=== PATIENT | female | born 1945 | race Caucasian/White ===

== ENCOUNTER 2020-11-01 12:19 | Outpatient (REF) | payer MEDICARE, SELFPAY ==
[2020-11-01 13:16] LABS: Glucose Urine UA NEG (NEG); Leukocyte Esterase Urine NEG (NEG); Nitrite Urine NEG (NEG); PH 7.5 (5.0-8.0); Urine Blood NEG (NEG); Urine Ketones NEG (NEG); Urine Protein NEG (NEG-TRACE)
[2020-11-01 13:18] LABS: Appearance Urine CLEAR; Color Urine YELLOW
[2020-11-01 13:22] LABS: MANUAL DIFF FLAG NO
[2020-11-01 13:34] LABS: Basophils Percent Auto 0.3 % (0-2); Eosinophils Absolute Auto 0.6 X10*3/uL (0.0-0.4); Eosinophils Percent Auto 5.4 % (0-4); Hematocrit 40.7 % (37-47); Hemoglobin 12.8 g/dl (12.0-16.0); Imm Gran Abs Auto 0.13 X10*3/uL (0.00-0.03); Imm Gran Pct Auto 1.2 % (0.0-0.4); Lymphocytes Absolute Auto 1.9 X10*3/uL (1.2-4.9); Lymphocytes Percent Auto 18.1 % (20-40); Mean Corpuscular HGB Conc 31.4 g/dl (31.0-35.0); Mean Corpuscular Hemoglobin 33.6 pg (27.0-33.0); Mean Corpuscular Volume 106.8 fL (80-98); Mean Platelet Volume 11.6 fL (9.4-12.3); Monocytes Absolute Auto 0.9 X10*3/uL (0.1-1.2); Monocytes Percent Auto 8.1 % (2-11); Neutrophils Percent Auto 66.9 % (45-73); Platelet Count 343 X10*3/uL (160-400); Red Blood Count 3.81 X10*6/uL (4.20-5.50); Red Cell Distribution Width 13.2 % (11.0-16.0); White Blood Count 10.4 X10*3/uL (4.8-10.8)
[2020-11-01 13:45] LABS: Alanine Aminotransferase 17 U/L (0-31); Albumin Level 4.3 g/dL (3.5-5.0); Alkaline Phosphatase 77 U/L (39-117); Anion Gap 14 (12-20); Aspartate Amino Transferase 18 U/L (5-31); Bilirubin Total 0.4 mg/dL (0.0-1.0); Blood Urea Nitrogen 35 mg/dL (9-16); Calcium 10.3 mg/dL (8.4-10.2); Carbon Dioxide 28 mmol/L (22-29); Chloride 108 mmol/L (96-108); Cholesterol 187 mg/dL; Estimated Glomerular Filt Rate 31; Glucose Fasting 109 mg/dL (60-99); HDL Cholesterol 35 mg/dL; LDL Cholesterol Calculated 103 mg/dl; Potassium 5.6 mmol/L (3.3-5.1); Sodium 144 mmol/L (135-145); Total Protein 6.6 g/dL (6.5-8.0); Triglycerides 249 mg/dL
[2020-11-01 13:47] LABS: B Type Natriuretic Peptide 341 pg/mL (<100)
[2020-11-01 14:07] LABS: TSH reflex Free T4 1.81 uIU/mL (0.32-4.0); Vitamin D 25-OH Total 82.3 ng/mL (>30)
== END 2020-11-01 12:20 | disposition home or self-care (01) ==
LOC: HO.LAB 12:19
PROVIDERS: PCP Internal Medicine; Visit Provider Internal Medicine
DX: R06.00 Dyspnea, unspecified (principal); I10 Essential (primary) hypertension; E78.00 Pure hypercholesterolemia, unspecified; E66.01 Morbid (severe) obesity due to excess calories; Z68.41 Body mass index [BMI] 40.0-44.9, adult; E55.9 Vitamin D deficiency, unspecified
CPT/HCPCS: 36415; 80053; 80061; 81003; 82306; 83880; 84443; 85025

== ENCOUNTER 2020-12-23 15:23 | Outpatient (REF) | payer MEDICARE, SELFPAY ==
--- NOTE | ~2020-12-23 | MM_ITS ---
EXAMINATION: MM SCREENING DIGITAL BREAST TOMOSYNTHESIS, BILATERAL CLINICAL INFORMATION: Screening. Asymptomatic. The lifetime risk of breast cancer based on the Tyrer-Cuzick Model is 1.9%. COMPARISON: Mammography: June 21, 2018 and studies dating back to September 19, 2013 TECHNIQUE: Digital breast tomosynthesis is performed in both the craniocaudal and mediolateral oblique views along with computer-aided detection (CAD). Synthesized 2D images are generated from the tomosynthesis. FINDINGS: There are scattered areas of fibroglandular density (ACR BI-RADS breast composition Category b). There are no significant masses, abnormal calcifications, or other abnormalities. There is noted to be a density about the central aspect of the left breast on craniocaudal view but which is seen on 2 different images to change in appearance to correspond to previously seen density in a more anterior breast. MM/MM tomosynthesis screening BI IMPRESSION: There are no significant changes from prior study. ASSESSMENT: BI-RADS 1: Negative RECOMMENDATION: Routine annual mammography screening. This patient's information was entered into a reminder system with a target due date for their next mammogram.
== END 2020-12-23 15:24 | disposition home or self-care (01) ==
LOC: HO.MAMMO 15:23
PROVIDERS: PCP Internal Medicine; Visit Provider Internal Medicine
DX: Z12.31 Encounter for screening mammogram for malignant neoplasm of breast (principal)
CPT/HCPCS: 77063; 77067

== ENCOUNTER 2021-07-03 11:40 | Outpatient (REF) | payer MEDICARE, SELFPAY ==
[2021-07-03 12:11] LABS: MANUAL DIFF FLAG NO
[2021-07-03 12:16] LABS: Basophils Percent Auto 0.3 % (0-2); Eosinophils Absolute Auto 0.4 X10*3/uL (0.0-0.4); Eosinophils Percent Auto 3.8 % (0-4); Hematocrit 37.6 % (37.0-47.0); Hemoglobin 11.9 g/dl (12.0-16.0); Imm Gran Abs Auto 0.31 X10*3/uL (0.00-0.03); Imm Gran Pct Auto 3.3 % (0.0-0.4); Lymphocytes Absolute Auto 1.9 X10*3/uL (1.2-4.9); Lymphocytes Percent Auto 20.2 % (20-40); Mean Corpuscular HGB Conc 31.6 g/dl (31.0-35.0); Mean Corpuscular Hemoglobin 34.5 pg (27.0-33.0); Mean Platelet Volume 10.4 fL (9.4-12.3); Monocytes Absolute Auto 0.9 X10*3/uL (0.1-1.2); Monocytes Percent Auto 9.1 % (2-11); Neutrophils Percent Auto 63.3 % (45-73); Platelet Count 441 X10*3/uL (160-400); Red Blood Count 3.45 X10*6/uL (4.20-5.50); Red Cell Distribution Width 13.8 % (11.0-16.0); White Blood Count 9.5 X10*3/uL (4.8-10.8)
[2021-07-03 12:32] LABS: Estimated Average Glucose 105 mg/dL; Hemoglobin A1c % 5.3 %
[2021-07-03 12:38] LABS: Alanine Aminotransferase 24 U/L (0-31); Albumin Level 4.3 g/dL (3.5-5.0); Alkaline Phosphatase 75 U/L (39-117); Anion Gap 13 (12-20); Aspartate Amino Transferase 19 U/L (5-31); Bilirubin Total 0.2 mg/dL (0.0-1.0); Blood Urea Nitrogen 33 mg/dL (9-16); Calcium 10.5 mg/dL (8.4-10.2); Carbon Dioxide 28 mmol/L (22-29); Chloride 108 mmol/L (96-108); Cholesterol 184 mg/dL; Estimated Glomerular Filt Rate 28; Glucose Fasting 111 mg/dL (60-99); HDL Cholesterol 31 mg/dL; LDL Cholesterol Calculated 105 mg/dl; Potassium 5.3 mmol/L (3.3-5.1); Sodium 144 mmol/L (135-145); Total Protein 6.6 g/dL (6.5-8.0); Triglycerides 244 mg/dL
[2021-07-03 13:00] LABS: Appearance Urine CLEAR; Color Urine YELLOW; Glucose Urine UA NEG (NEG); Leukocyte Esterase Urine NEG (NEG); Nitrite Urine NEG (NEG); PH 5.5 (5.0-8.0); Specific Gravity - Urine 1.025 (1.005-1.025); Urine Blood NEG (NEG); Urine Ketones NEG (NEG); Urine Protein NEG (NEG-TRACE)
[2021-07-03 13:00] LABS: TSH reflex Free T4 1.49 uIU/mL (0.32-4.0)
== END 2021-07-03 11:41 | disposition home or self-care (01) ==
LOC: HO.LAB 11:40
PROVIDERS: PCP Internal Medicine; Visit Provider Internal Medicine
DX: E55.9 Vitamin D deficiency, unspecified (principal); E78.00 Pure hypercholesterolemia, unspecified; R73.01 Impaired fasting glucose; I10 Essential (primary) hypertension
CPT/HCPCS: 36415; 80053; 80061; 81003; 82306; 83036; 84443; 85025

== ENCOUNTER 2021-10-31 11:34 | Outpatient (REF) | payer MEDICARE, SELFPAY ==
[2021-10-31 11:54] LABS: MANUAL DIFF FLAG NO
[2021-10-31 12:11] LABS: Basophils Percent Auto 0.3 % (0-2); Eosinophils Absolute Auto 0.7 X10*3/uL (0.0-0.4); Eosinophils Percent Auto 5.6 % (0-4); Hematocrit 30.3 % (37.0-47.0); Hemoglobin 8.8 g/dl (12.0-16.0); Imm Gran Abs Auto 0.18 X10*3/uL (0.00-0.03); Imm Gran Pct Auto 1.5 % (0.0-0.4); Lymphocytes Absolute Auto 1.7 X10*3/uL (1.2-4.9); Lymphocytes Percent Auto 14.7 % (20-40); Mean Corpuscular Hemoglobin 27.3 pg (27.0-33.0); Mean Corpuscular Volume 94.1 fL (80.0-98.0); Mean Platelet Volume 10.4 fL (9.4-12.3); Monocytes Absolute Auto 1.1 X10*3/uL (0.1-1.2); Monocytes Percent Auto 9.2 % (2-11); Neutrophils Absolute Auto 8.1 x10*3/uL (2.0-8.3); Neutrophils Percent Auto 68.7 % (45-73); Platelet Count 507 X10*3/uL (160-400); Red Blood Count 3.22 X10*6/uL (4.20-5.50); Red Cell Distribution Width 16.1 % (11.0-16.0); White Blood Count 11.8 X10*3/uL (4.8-10.8)
[2021-10-31 12:37] LABS: Appearance Urine HAZY; Color Urine YELLOW; Glucose Urine UA NEG (NEG); Leukocyte Esterase Urine NEG (NEG); Nitrite Urine NEG (NEG); PH 5.5 (5.0-8.0); Urine Blood NEG (NEG); Urine Ketones NEG (NEG); Urine Protein NEG (NEG-TRACE)
[2021-10-31 12:39] LABS: Alanine Aminotransferase 14 U/L (0-31); Albumin Level 4.2 g/dL (3.5-5.0); Alkaline Phosphatase 87 U/L (39-117); Anion Gap 15 (12-20); Aspartate Amino Transferase 15 U/L (5-31); Bilirubin Total 0.3 mg/dL (0.0-1.0); Blood Urea Nitrogen 26 mg/dL (9-16); Carbon Dioxide 23 mmol/L (22-29); Chloride 107 mmol/L (96-108); Cholesterol 179 mg/dL; Estimated Glomerular Filt Rate 31; Glucose Fasting 113 mg/dL (60-99); HDL Cholesterol 32 mg/dL; LDL Cholesterol Calculated 99 mg/dl; Sodium 140 mmol/L (135-145); Total Protein 6.5 g/dL (6.5-8.0); Triglycerides 243 mg/dL
[2021-10-31 12:55] LABS: TSH reflex Free T4 2.31 uIU/mL (0.32-4.0); Vitamin D 25-OH Total 79.2 ng/mL (>30)
== END 2021-10-31 11:35 | disposition home or self-care (01) ==
LOC: HO.LAB 11:34
PROVIDERS: PCP Internal Medicine; Visit Provider Internal Medicine
DX: E78.00 Pure hypercholesterolemia, unspecified (principal); E55.9 Vitamin D deficiency, unspecified; I10 Essential (primary) hypertension
CPT/HCPCS: 36415; 80053; 80061; 81003; 82306; 84443; 85025

== ENCOUNTER 2022-01-23 15:36 | Inpatient (IN) | payer MEDICARE, SELFPAY ==
[2022-01-23] VITALS (12 sets, daily range): BP systolic 128–176; BP diastolic 34–67; PULSE 64–78; RESP 11–18; TEMP 36.7–37; O2SAT 93–98; BMI 43.2
--- NOTE | ~2022-01-23 | XR_ITS ---
EXAMINATION: XR CHEST CLINICAL INFORMATION: Chronic cough COMPARISON: CT abdomen 01/23/2022, chest radiographs 04/01/2018, 03/08/2018; CTA chest 09/25/2014 TECHNIQUE: The chest is imaged in upright AP and 2 lateral views for a total of 3 views. FINDINGS: There is no airspace consolidation, groundglass opacity, or effusion. The costophrenic sulci are clear. The heart is normal in size. The vascularity is normal. There is a small round calcification overlying right lower zone corresponding to calcified costal cartilage adjacent to anterior right fifth rib and consistent with prior CT 2015. The hilar and mediastinal contours are normal. No acute bony abnormality. There is again old superior endplate depression lower thoracic vertebral body, also present on CT 2015. XR/XR chest 2V IMPRESSION: Unremarkable examination.
--- NOTE | ~2022-01-23 | CT_ITS ---
EXAMINATION: CT ABDOMEN AND PELVIS WITHOUT CONTRAST CLINICAL INFORMATION: GI bleed and lower abdominal pain COMPARISON: Ultrasound abdomen 12/02/2018 TECHNIQUE: Multidetector volumetric imaging was performed from the superior aspect of the liver through the pubic symphysis. Sagittal and coronal reformatted images were obtained on the technologist's workstation. This CT examination was performed using dose optimization techniques as appropriate, variously including the following: *Automated exposure control *Adjustment of mA and/or kV according to patient size (this includes techniques or standardized protocols for targeted exams where dose is matched to indication/reason for exam; i.e. extremities or head) *Use of iterative reconstruction technique DLP: 1118 mGy-cm FINDINGS: LUNG BASES: The visualized lung bases are unremarkable. LIVER, GALLBLADDER, AND BILIARY TREE: The liver is normal in size, shape, and attenuation. No focal hepatic lesion or biliary ductal dilatation is present. The gallbladder is unremarkable with no evidence of radiopaque gallstones, gallbladder wall thickening, or obvious pericholecystic inflammatory changes. PANCREAS: Unremarkable. SPLEEN: Unremarkable. Splenic granulomas are present. ADRENAL GLANDS: Unremarkable. KIDNEYS AND URETERS: There is some scarring and cortical volume loss in the left kidney compared to the study from 2018. On 02/17/2019 ultrasound, the left kidney was noted to measure only 8.2 cm in greatest length A left tight renal artery stenosis is present which could be playing a role with marked ostial calcification and luminal narrowing to approximately 2 to 4 mm (compared with 6 x 5 mm on the right). This is the maximal diameter as 2 diameter may be less if there is noncalcified plaque which cannot be ascertained from this noncontrast study. There is a small 6 mm Bosniak class II hyperattenuating cyst upper pole left kidney seen previously. No suspicious renal masses are seen. No hydronephrosis or masses. BLADDER: Unremarkable. GASTROINTESTINAL TRACT: This study without IV contrast is inadequate to diagnose an active GI bleed. Marked diverticular changes are present in the sigmoid colon with scattered diverticula elsewhere no evidence of bowel obstruction. No evidence of colonic neoplasm. The small and large bowel are otherwise unremarkable. The appendix is none identified but there is no evidence of appendicitis.. ABDOMINAL WALL: No significant hernia is appreciated. LYMPH NODES: No retroperitoneal lymphadenopathy adenopathy VASCULAR: Atherosclerotic changes. Please see discussion above regarding left renal artery stenosis and left renal atrophy PELVIC VISCERA: Unremarkable. OSSEOUS STRUCTURES: Degenerative changes present in the spine. There is grade 2 anterolisthesis of L5 upon S1 with fusion. There is compression of the superior endplate of T12. CT/CT abdomen pelvis wo con IMPRESSION: 1. No evidence of GI bleeding although this study has virtually no utility for detection. 2. No large bowel neoplasm is seen which could be causing bleeding. This study also has a low detection rate for such abnormalities. 3. There is extensive sigmoid diverticulosis without diverticulitis. 4. Cortical scarring and volume loss in the left kidney with associated left renal artery stenosis. Fleischner guidelines were followed.
[2022-01-23 16:54] LABS: MANUAL DIFF FLAG NO
[2022-01-23 16:57] LABS: Basophils Percent Auto 0.1 % (0-2); Eosinophils Absolute Auto 0.2 X10*3/uL (0.0-0.4); Eosinophils Percent Auto 1.2 % (0-4); Imm Gran Abs Auto 0.18 X10*3/uL (0.00-0.03); Imm Gran Pct Auto 1.2 % (0.0-0.4); Lymphocytes Absolute Auto 1.6 X10*3/uL (1.2-4.9); Lymphocytes Percent Auto 11.1 % (20-40); Mean Corpuscular HGB Conc 27.8 g/dl (31.0-35.0); Mean Corpuscular Hemoglobin 25.8 pg (27.0-33.0); Mean Corpuscular Volume 92.8 fL (80.0-98.0); Mean Platelet Volume 9.6 fL (9.4-12.3); Monocytes Absolute Auto 1.2 X10*3/uL (0.1-1.2); Monocytes Percent Auto 8.3 % (2-11); NRBC Pct Auto 0.1 /100WBC (0.0-0.2); Neutrophils Absolute Auto 11.5 x10*3/uL (2.0-8.3); Neutrophils Percent Auto 78.1 % (45-73); Platelet Count 528 X10*3/uL (160-400); Red Blood Count 1.94 X10*6/uL (4.20-5.50); Red Cell Distribution Width 18.1 % (11.0-16.0); White Blood Count 14.8 X10*3/uL (4.8-10.8)
[2022-01-23 17:25] LABS: Anion Gap 14 (12-20); Blood Urea Nitrogen 47 mg/dL (9-16); Calcium 10.3 mg/dL (8.4-10.2); Carbon Dioxide 24 mmol/L (22-29); Chloride 108 mmol/L (96-108); Creatinine Clr Calc Pharmacy 36.4; Estimated Glomerular Filt Rate 29; Glucose Random 118 mg/dL (60-115); Potassium 5.3 mmol/L (3.3-5.1); Sodium 141 mmol/L (135-145)
--- NOTE | 2022-01-23 17:35 | ECG_ITS ---
Test Reason : GI BLEED Blood Pressure : / mmHG Vent. Rate : 072 BPM Atrial Rate : 072 BPM P-R Int : 196 ms QRS Dur : 084 ms QT Int : 382 ms P-R-T Axes : 051 044 052 degrees QTc Int : 418 ms Normal sinus rhythm Normal ECG When compared with ECG of 01-APR-2018 17:11, T wave inversion no longer evident in Anterior leads Referred By: Connor Plascencia Electronically Signed By:LAVINIA OROPEZA
--- NOTE | 2022-01-23 17:36 | ED_ITS ---
HPI - GI Bleed General Chief complaint: GI Bleed Stated complaint: Heavy Rectal Bleeding Time Seen by Provider: 01/23/22 17:34 Source: patient Mode of arrival: ambulatory Limitations: no limitations History of Present Illness HPI Narrative: Patient with a few months of black stool, now with reddish stool and low ab dominal pain. INcreased weakness and she cannot ambulate. Patient is on apixaban for PE and DVT Onset (ago): week(s) Pain Consistency: intermittent Severity: mild Context: anticoagulant use Associated symptoms: malaise and weakness Related Data Previous Rx's Medication Instructions Recorded lisinopril 40 mg tablet 40 mg PO DAILY #90 tabs 06/26/21 atorvastatin 40 mg tablet 40 mg PO DAILY #90 tabs 07/03/21 ondansetron HCl 4 mg tablet 4 mg PO Q8H PRN for 09/04/21 nausea/vomiting 10 days #30 tabs apixaban 5 mg tablet (Eliquis) 5 mg PO BID #180 tabs 09/26/21 hydrochlorothiazide 50 mg tablet 50 mg PO DAILY #90 tabs 09/26/21 ibuprofen 600 mg tablet 600 mg PO TID PRN for fever #90 01/04/22 tabs Allergies Allergy/AdvReac Type Severity Reaction Status Date / Time levofloxacin [From LEVAQUIN] Allergy Severe angioedema Verified 01/23/22 16:12 metronidazole [From FLAGYL] Allergy Severe angioedema Verified 01/23/22 16:12 codeine [CODEINE] Allergy Intermediate RASH, hives Verified 01/23/22 16:12 codeine Allergy Unknown hives Uncoded 10/31/21 14:02 Review of Systems Constitutional: Constitutional: Reports no additional constitutional complaints Eyes: Eyes: Reports no additional eye complaints ENT: Denies dizziness Cardiovascular: Cardiovascular: Reports no additional cardiovascular complaints Respiratory: Respiratory: Reports as per HPI Gastrointestinal: Gastrointestinal: Reports no additional gastrointestinal complaints Genitourinary: Genitourinary: Reports no additional female genitourinary complaints Musculoskeletal: Musculoskeletal: Reports no additional musculoskeletal complaints Integumentary/Breasts: Skin/Breast: Denies rash Neurologic: Reports system reviewed and no additional complaints, except as documented, Denies dizziness and Denies Sensory deficit (Neuro) Psychiatric: Psychiatric: Denies anxiety PMFSH Past Medical History Medical History Anemia Benign essential hypertension Breast cancer screening Chronic idiopathic urticaria Chronic kidney disease (CKD), stage III (moderate) Exertional dyspnea History of pulmonary embolism Impaired fasting glucose Morbid obesity with BMI of 40.0-44.9, adult Osteopenia Pure hypercholesterolemia Skin lesions Surgical History History of appendectomy History of back surgery Family History Family History Father Liver cirrhosis Mother Substance abuse Social History Social History Housing: House Alcohol intake: never Patient Tobacco Use Status: Former Tobacco user Second Hand Smoke Exposure: Yes Use of substances other than those prescribed or required for medical reasons: No Advance Directives: No Advance Directives Information Provided: No service: No Current occupational status: retired Cognitive needs: No Hearing needs: No Vision needs: Yes (wears glasses) Physical Exam Vital Signs: Vital Signs: Last Vital Signs Temp 98.6 F 01/23/22 19:32 Pulse 68 01/23/22 19:36 Resp 16 01/23/22 19:36 BP 128/67 01/23/22 19:36 Pulse Ox 98 01/23/22 19:32 O2 Del Method 01/23/22 19:32 BMI result Body Mass Index 43.2 Const: Other: obese female appearing pale Nutritional Appearance: average body habitus Orientation/consciousness: oriented to person and patient oriented x3 Limitations: no limitations HEENT: Head: Yes normal to inspection Ears: external ears normal General nose exam: Normal external nose present Mouth: Normal oral and palatal mucosa present and oropharynx normal Throat: Yes posterior oropharynx normal Eyes: General: appearance normal, both eyes and all related structures Neck: Other: supple Neck: Yes normal visual inspection Chest: Chest palpation & inspection: normal inspection of the chest Resp: Auscultation: clear to auscultation bilaterally Cardio: Jugular venous distension: no JVD Rate: regular rate Rhythm: regular rhythm Heart sounds: S1 normal heart sound present and S2 normal heart sound present GI: Other: obese, mild lower abdominal pain Auscultation: normal bowel sounds : Other: rectal black stool with strong heme positive on guiac card Skin: General skin exam: no rashes or lesions noted Neuro: General: oriented to person and patient oriented x3 Cranial nerves: Yes CN's II-XII intact bilaterally Motor exam (neuro): 5/5 motor strength present throughout Sensory Exam: No Sensory deficit (Neuro) Extrem: General: Yes normal to inspection Psych: Appearance: grossly normal MDM - GI Bleed Lab Data Result diagrams: 01/23/22 16:47 01/23/22 16:47 Labs: Lab Results 01/23/22 01/23/22 01/23/22 Range/Units 16:47 16:47 17:43 WBC 14.8 H (4.8-10.8) X10*3/uL RBC 1.94 L D (4.20-5.50) X10*6/uL Hgb 5.0 L* D (12.0-16.0) g/dl Hct 18.0 L* D (37.0-47.0) % MCV 92.8 (80.0-98.0) fL MCH 25.8 L (27.0-33.0) pg MCHC 27.8 L (31.0-35.0) g/dl RDW 18.1 H (11.0-16.0) % Plt Count 528 H (160-400) X10*3/uL MPV 9.6 (9.4-12.3) fL Immature Gran % (Auto) 1.2 H (0.0-0.4) % Neut % (Auto) 78.1 H (45-73) % Lymph % (Auto) 11.1 L (20-40) % [place] % (Auto) 8.3 (2-11) % Eos % (Auto) 1.2 (0-4) % Baso % (Auto) 0.1 (0-2) % Lymph # (Auto) 1.6 (1.2-4.9) X10*3/uL [place] # (Auto) 1.2 (0.1-1.2) X10*3/uL Eos # (Auto) 0.2 (0.0-0.4) X10*3/uL Baso # (Auto) 0.0 (0.0-0.2) X10*3/uL Abs Immat Gran (auto) 0.18 H (0.00-0.03) X10*3/uL Absolute Neuts (auto) 11.5 H (2.0-8.3) x10*3/uL Absolute Nucleated RBC 0.020 H (0.0-0.012) X10*3/uL Nucleated RBC % (auto) 0.1 (0.0-0.2) /100WBC Sodium 141 (135-145) mmol/L Potassium 5.3 H (3.3-5.1) mmol/L Chloride 108 (96-108) mmol/L Carbon Dioxide 24 (22-29) mmol/L Anion Gap 14 (12-20) BUN 47 H D (9-16) mg/dL Creatinine 1.69 H (0.5-1.4) mg/dL Estim Creat Clear Calc 36.4 Estimated GFR 29 Random Glucose 118 H (60-115) mg/dL Calcium 10.3 H (8.4-10.2) mg/dL Troponin I High Sens (<3.5-17.0) ng/L COVID-19 (SERGIO) (Negative) COVID-19 Clin Com Blood Type A Positive Antibody Screen NEGATIVE Crossmatch See Detail 01/23/22 01/23/22 Range/Units 17:55 18:59 WBC (4.8-10.8) X10*3/uL RBC (4.20-5.50) X10*6/uL Hgb (12.0-16.0) g/dl Hct (37.0-47.0) % MCV (80.0-98.0) fL MCH (27.0-33.0) pg MCHC (31.0-35.0) g/dl RDW (11.0-16.0) % Plt Count (160-400) X10*3/uL MPV (9.4-12.3) fL Immature Gran % (Auto) (0.0-0.4) % Neut % (Auto) (45-73) % Lymph % (Auto) (20-40) % [place] % (Auto) (2-11) % Eos % (Auto) (0-4) % Baso % (Auto) (0-2) % Lymph # (Auto) (1.2-4.9) X10*3/uL [place] # (Auto) (0.1-1.2) X10*3/uL Eos # (Auto) (0.0-0.4) X10*3/uL Baso # (Auto) (0.0-0.2) X10*3/uL Abs Immat Gran (auto) (0.00-0.03) X10*3/uL Absolute Neuts (auto) (2.0-8.3) x10*3/uL Absolute Nucleated RBC (0.0-0.012) X10*3/uL Nucleated RBC % (auto) (0.0-0.2) /100WBC Sodium (135-145) mmol/L Potassium (3.3-5.1) mmol/L Chloride (96-108) mmol/L Carbon Dioxide (22-29) mmol/L Anion Gap (12-20) BUN (9-16) mg/dL Creatinine (0.5-1.4) mg/dL Estim Creat Clear Calc Estimated GFR Random Glucose (60-115) mg/dL Calcium (8.4-10.2) mg/dL Troponin I High Sens 7.9 (<3.5-17.0) ng/L COVID-19 (SERGIO) Negative (Negative) COVID-19 Clin Com See Note Blood Type Antibody Screen Crossmatch Imaging Data CT scan - abdomen: Radiologist's impression: CT/CT abdomen pelvis wo con IMPRESSION: 1.? No evidence of GI bleeding although this study has virtually no utility for detection. 2.? No large bowel neoplasm is seen which could be causing bleeding. This study also has a low detection rate for such abnormalities. 3.? There is extensive sigmoid diverticulosis without diverticulitis. 4.? Cortical scarring and volume loss in the left kidney with associated left renal artery stenosis.? ? Fleischner guidelines were followed. ECG Data Attestation: I personally reviewed and interpreted this ECG as follows: Interpretation: sinus 70, no st or twave changes Critical Care Time Critical Care Time Attestation: I spent 40 minutes of critical care, with interventions, assessments, speaking to patient, consultants, and family. Discharge Plan Discharge Clinical Impression: GI bleed Patient Disposition: Admitted As Inpatient
[2022-01-23] MEDS: Pantoprazole Sodium 40 MG/10 ML VIAL IVPUSH (18:05)
[2022-01-23 18:29] LABS: Troponin-I High Sensitivity 7.9 ng/L (<3.5-17.0)
--- NOTE | 2022-01-23 19:18 | PHA.MEDREC ---
Pharmacy Consult ? Medication Reconciliation Pharmacy has completed the medication reconciliation.
[2022-01-23 19:19] LABS: COVID-19 Test Negative (Negative)
--- NOTE | 2022-01-23 19:23 | PC.NURSE ---
report received from Amaris GARDNER. pt to be given blood transusion. blood reveiced from blood bank, pt in CT scan. blood started upon patient return to ED room. tolerating transfusion well. NAD. continuous monitoring in place.
[2022-01-23] MEDS: Acetaminophen 325 MG TABLET 650 MG PO (23:12)
[2022-01-24] VITALS (8 sets, daily range): BP systolic 104–178; BP diastolic 50–76; PULSE 67–79; RESP 14–18; TEMP 36.2–37; O2SAT 94–100
--- NOTE | 2022-01-24 00:04 | PC.NURSE ---
2 units RBCs infused. pt tolerated well. no current complaints, no respiratory distress. vitals stable. will continue to monitor closely.
[2022-01-24 04:52] LABS: MANUAL DIFF FLAG NO
[2022-01-24 04:57] LABS: Basophils Percent Auto 0.2 % (0-2); Eosinophils Absolute Auto 0.3 X10*3/uL (0.0-0.4); Eosinophils Percent Auto 2.5 % (0-4); Hemoglobin 8.3 g/dl (12.0-16.0); Imm Gran Abs Auto 0.14 X10*3/uL (0.00-0.03); Imm Gran Pct Auto 1.1 % (0.0-0.4); Lymphocytes Absolute Auto 2.4 X10*3/uL (1.2-4.9); Lymphocytes Percent Auto 18.5 % (20-40); Mean Corpuscular HGB Conc 30.7 g/dl (31.0-35.0); Mean Corpuscular Hemoglobin 27.7 pg (27.0-33.0); Mean Platelet Volume 10.3 fL (9.4-12.3); Monocytes Absolute Auto 1.2 X10*3/uL (0.1-1.2); Monocytes Percent Auto 8.9 % (2-11); Neutrophils Absolute Auto 9.1 x10*3/uL (2.0-8.3); Neutrophils Percent Auto 68.8 % (45-73); Platelet Count 467 X10*3/uL (160-400); Red Cell Distribution Width 17.5 % (11.0-16.0); White Blood Count 13.2 X10*3/uL (4.8-10.8)
[2022-01-24 05:12] LABS: Anion Gap 14 (12-20); Blood Urea Nitrogen 40 mg/dL (9-16); Calcium 9.7 mg/dL (8.4-10.2); Carbon Dioxide 23 mmol/L (22-29); Chloride 110 mmol/L (96-108); Estimated Glomerular Filt Rate 34; Glucose Random 98 mg/dL (60-115); Potassium 4.9 mmol/L (3.3-5.1); Sodium 142 mmol/L (135-145)
--- NOTE | 2022-01-24 06:16 | PM.IMHP ---
History of Present Illness Date of Service: 01/23/22 Chief Complaint: GI bleed This is a 76-year-old female with past medical history of HTN, CKD, history of DVT/pulmonary embolism on apixaban presents to the hospital with multiple episodes of bloody bowel movements. Patient reports that her bowel movements initially began to turn tarry black yesterday followed by multiple episodes of bright blood blood per rectum. She reports diffuse abdominal pain that is about 8/10, intermittent, nonradiating, reports no headache or change in vision, slight dizziness and shortness of breath on exertion, no chest pain, no palpitations, no urinary symptoms and no lower extremity edema. She feels overall very fatigued and low energy, she has also lost appetite for the past 2 days. No numbness tingling or weakness. Patient denies any use of NSAIDs but on review of her medications she does have ibuprofen prescribed On arrival to the ED patient's vitals were found to be significant for slightly elevated blood pressure otherwise unremarkable Labs are significant for WBC count of 14.8, hemoglobin of 5 hematocrit of 18, previously 8.8 and 30 in October, MCV of 92.8, potassium 5.3, BUN of 47 with a baseline around 30s, creatinine of 1.69 which is around her baseline, Patient abdominal CT negative but shows diverticulosis with no diverticulitis Review of Systems Review of Systems: Yes all other systems are reviewed and are negative [facility] Medical History Anemia Benign essential hypertension Breast cancer screening Chronic idiopathic urticaria Chronic kidney disease (CKD), stage III (moderate) Exertional dyspnea History of pulmonary embolism Impaired fasting glucose Morbid obesity with BMI of 40.0-44.9, adult Osteopenia Pure hypercholesterolemia Skin lesions Family History Father Liver cirrhosis Mother Substance abuse Surgical History History of appendectomy History of back surgery Social History Housing: House Alcohol intake: never Patient Tobacco Use Status: Former Tobacco user Second Hand Smoke Exposure: Yes Use of substances other than those prescribed or required for medical reasons: No Advance Directives: No Advance Directives Information Provided: No service: No Current occupational status: retired Cognitive needs: No Hearing needs: No Vision needs: Yes (wears glasses) Meds Allergies Allergy/AdvReac Type Severity Reaction Status Date / Time levofloxacin [From LEVAQUIN] Allergy Severe angioedema Verified 01/23/22 16:12 metronidazole [From FLAGYL] Allergy Severe angioedema Verified 01/23/22 16:12 codeine [CODEINE] Allergy Intermediate RASH, hives Verified 01/23/22 16:12 codeine Allergy Unknown hives Uncoded 10/31/21 14:02 Active Medications: Current Medications Acetaminophen (Acetaminophen 325 Mg Tablet) 650 mg PO Q6H PRN PRN Reason: Pain, Mild (Pain Scale 1-3) Last Admin: 01/23/22 23:12 Dose: 650 mg Docusate Sodium (Docusate Sodium 100 Mg Capsule) 100 mg PO DAILY PRN PRN Reason: Constipation Ondansetron HCl (Ondansetron Hcl 4 Mg/2 Ml Vial) 4 mg IVPUSH Q8H PRN PRN Reason: Nausea and Vomiting Pharmacy Consult (Consult Rx Perform Med Rec) 1 each MISCELLANE ONCE PRN PRN Reason: Consult order Sodium Chloride (0.9 % Sodium Chloride Flush 3 Ml Syringe) 3 ml IVFLUSH QSHIFT [facility] Last Admin: 01/24/22 01:01 Dose: Not Given Physical Exam Vital Signs and Narrative: Vital Signs: Last Vital Signs Temp 98.0 F 01/24/22 05:24 Pulse 78 01/24/22 05:24 Resp 16 01/24/22 05:24 BP 158/76 H 01/24/22 05:24 Pulse Ox 94 01/24/22 05:24 O2 Del Method 01/24/22 05:24 BMI result Body Mass Index 43.2 Const: General: cooperative and no acute distress Orientation/consciousness: patient oriented x3 Eyes: General: appearance normal, both eyes and all related structures Resp: Effort & Inspection: normal respiratory effort Auscultation: clear to auscultation bilaterally Cardio: Rate: regular rate Rhythm: regular rhythm GI: Other: No rebound or guarding Palpation (GI): Soft to palpation Auscultation: normal bowel sounds Skin: General skin exam: no rashes or lesions noted Neuro: General: patient oriented x3 Cognition (Neuro): normal cognition Extrem: General: Yes normal to inspection and Yes no pedal edema Results Labs CBC and Chem 7: 01/24/22 04:12 01/24/22 04:12 Labs: Laboratory Results - last 24 hr 01/23/22 01/23/22 01/23/22 16:47 16:47 17:43 MCV 92.8 MCH 25.8 L MCHC 27.8 L RDW 18.1 H Plt Count 528 H MPV 9.6 Immature Gran % (Auto) 1.2 H Neut % (Auto) 78.1 H Lymph % (Auto) 11.1 L [place] % (Auto) 8.3 Eos % (Auto) 1.2 Baso % (Auto) 0.1 Lymph # (Auto) 1.6 [place] # (Auto) 1.2 Eos # (Auto) 0.2 Baso # (Auto) 0.0 Abs Immat Gran (auto) 0.18 H Absolute Neuts (auto) 11.5 H Absolute Nucleated RBC 0.020 H Nucleated RBC % (auto) 0.1 Anion Gap 14 Estim Creat Clear Calc 36.4 Estimated GFR 29 Random Glucose 118 H Calcium 10.3 H COVID-19 (SERGIO) COVID-19 Clin Com Blood Type A Positive Antibody Screen NEGATIVE Crossmatch See Detail 01/23/22 01/24/22 01/24/22 18:59 04:12 04:12 MCV 90.0 MCH 27.7 MCHC 30.7 L RDW 17.5 H Plt Count 467 H MPV 10.3 Immature Gran % (Auto) 1.1 H Neut % (Auto) 68.8 Lymph % (Auto) 18.5 L [place] % (Auto) 8.9 Eos % (Auto) 2.5 Baso % (Auto) 0.2 Lymph # (Auto) 2.4 [place] # (Auto) 1.2 Eos # (Auto) 0.3 Baso # (Auto) 0.0 Abs Immat Gran (auto) 0.14 H Absolute Neuts (auto) 9.1 H Absolute Nucleated RBC 0.000 Nucleated RBC % (auto) 0.0 Anion Gap 14 Estim Creat Clear Calc 41.0 Estimated GFR 34 Random Glucose 98 Calcium 9.7 COVID-19 (SERGIO) Negative COVID-19 Clin Com See Note Blood Type Antibody Screen Crossmatch Imaging Radiologist's Impressions: Impressions Abdomen/Pelvis CT 01/23/22 19:19 IMPRESSION: 1. No evidence of GI bleeding although this study has virtually no utility for detection. 2. No large bowel neoplasm is seen which could be causing bleeding. This study also has a low detection rate for such abnormalities. 3. There is extensive sigmoid diverticulosis without diverticulitis. 4. Cortical scarring and volume loss in the left kidney with associated left renal artery stenosis. Fleischner guidelines were followed. Assessment and Plan (1) GI bleed: Status: Acute (2) Acute on chronic anemia: Status: Acute Plan 76-year-old female with a history of PE/DVT on apixaban presents to the hospital with GI bleed # GI bleed - upper versus lower unclear - has elevated BUN but has baseline CKD - no history of NSAIDs, is on apixaban for history of DVT - hold apixaban - status post 2 units of PRBC - will transfuse to a hemoglobin of 7 - follow CBC - GI consulted - clear liquids # acute on chronic anemia - normocytic - likely secondary to GI bleed - status post unit of PRBC received in the ED - follow CBC - hold NSAIDs # DVT/PE - hold apixaban # hypertension - slightly elevated - continue home medications DVT prophylaxis: SCDs Quality Stroke Does the patient have a stroke diagnosis?: No VTE Prior VTE?: No VTE Risk Level:: Medical - moderate - high VTE Device Contraindication: N/A - Device Ordered VTE Drug Contraindication: Treatment Not Indicated
--- NOTE | 2022-01-24 06:17 | P.CNGI_ITS ---
History of Present Illness Data of Consult Service Date: 01/24/22 Requesting physician: Ashanti Edmond Primary Care Provider: Remigio Hooks MD HPI Reason for consult: anemia 76 yr old f with hx of PTE and obesity being seen for assessment of anemia Patient has had blackish stools for few months, now noted to be more reddish in color, also noted altered bowle habits last few months with hard stools. she has noted lower abdominal cramps, with nausea. No fevers, no chills, but has SOB and chronic dry cough for 6 months. She denies dysphagia and reflux. No nose bleeds, no hematuria. she takes nsaids infrequently for joint pains, been on apixiban since PT2018. Maybe had a colonoscopy 40 yrs ago which was incomplete but not sure. she uses stick for walking but is self caring. Review of Systems Constitutional: Constitutional: Reports no additional constitutional com plaints Eyes: Eyes: Reports no additional eye complaints ENT: Denies dizziness Cardiovascular: Cardiovascular: Reports no additional cardiovascular complaints Respiratory: Respiratory: Reports as per HPI Gastrointestinal: Gastrointestinal: Reports no additional gastrointestinal complaints Genitourinary: Genitourinary: Reports no additional female genitourinary complaints Musculoskeletal: Musculoskeletal: Reports no additional musculoskeletal complaints Integumentary/Breasts: Skin/Breast: Denies rash Neurologic: Reports system reviewed and no additional complaints, except as documented, Denies dizziness and Denies Sensory deficit (Neuro) Psychiatric: Psychiatric: Denies anxiety Endocrine: Endocrine: Reports no additional endocrine complaints Hematologic/Lymphatic: Hematologic/Lymphatic: Reports no additional hematologic/lymphatic complaints and Denies easy bleeding Allergic/Immunologic: Allergic/Immunologic: Reports no additional all ergic/immunologic complaints PMFSH Past Medical History Medical History Anemia Benign essential hypertension Breast cancer screening Chronic idiopathic urticaria Chronic kidney disease (CKD), stage III (moderate) Exertional dyspnea History of pulmonary embolism Impaired fasting glucose Morbid obesity with BMI of 40.0-44.9, adult Osteopenia Pure hypercholesterolemia Skin lesions Family History Family History Father Liver cirrhosis Mother Substance abuse Surgical History Surgical History History of appendectomy History of back surgery Social History Social History Housing: House Alcohol intake: never Patient Tobacco Use Status: Former Tobacco user Second Hand Smoke Exposure: Yes Use of substances other than those prescribed or required for medical reasons: No Advance Directives: Yes Advance Directives on File: Yes Advance Directives Date on File: 01/24/22 service: No Current occupational status: retired Cognitive needs: No Hearing needs: No Vision needs: Yes (wears glasses) Meds Allergies Allergy/AdvReac Type Severity Reaction Status Date / Time levofloxacin [From LEVAQUIN] Allergy Severe angioedema Verified 01/23/22 16:12 metronidazole [From FLAGYL] Allergy Severe angioedema Verified 01/23/22 16:12 codeine [CODEINE] Allergy Intermediate RASH, hives Verified 01/23/22 16:12 codeine Allergy Unknown hives Uncoded 10/31/21 14:02 Active Medications: Current Medications Acetaminophen (Acetaminophen 325 Mg Tablet) 650 mg PO Q6H PRN PRN Reason: Pain, Mild (Pain Scale 1-3) Last Admin: 01/23/22 23:12 Dose: 650 mg Docusate Sodium (Docusate Sodium 100 Mg Capsule) 100 mg PO DAILY PRN PRN Reason: Constipation Ondansetron HCl (Ondansetron Hcl 4 Mg/2 Ml Vial) 4 mg IVPUSH Q8H PRN PRN Reason: Nausea and Vomiting Pharmacy Consult (Consult Rx Perform Med Rec) 1 each MISCELLANE ONCE PRN PRN Reason: Consult order Sodium Chloride (0.9 % Sodium Chloride Flush 3 Ml Syringe) 3 ml IVFLUSH [facility] Last Admin: 01/24/22 01:01 Dose: Not Given Physical Exam Vital Signs: Vital Signs: Last Vital Signs Temp 98.0 F 01/24/22 05:24 Pulse 78 01/24/22 05:24 Resp 16 01/24/22 05:24 BP 158/76 H 01/24/22 05:24 Pulse Ox 94 01/24/22 05:24 O2 Del Method 01/24/22 05:24 BMI result Body Mass Index 43.2 Const: Other: obese female appearing pale General: cooperative Nutritional Appearance: overweight Orientation/consciousness: oriented to person and patient oriented x3 Limitations: no limitations HEENT: Head: Yes normal to inspection Ears: external ears normal General nose exam: Normal external nose present Mouth: Normal oral and palatal mucosa present and oropharynx normal Throat: Yes posterior oropharynx normal Eyes: General: appearance normal, both eyes and all related structures Neck: Other: supple Neck: Yes normal visual inspection Chest: Chest palpation & inspection: normal inspection of the chest Resp: Auscultation: clear to auscultation bilaterally Cardio: Jugular venous distension: no JVD Rate: regular rate Rhythm: regular rhythm Heart sounds: S1 normal heart sound present and S2 normal heart sound present GI: Other: obese, mild lower abdominal pain Inspection: Yes normal to inspection Auscultation: normal bowel sounds : Other: rectal black stool with strong heme positive on guiac card Skin: General skin exam: no rashes or lesions noted Neuro: General: oriented to person and patient oriented x3 Cranial nerves: Yes CN's II-XII intact bilaterally Motor exam (neuro): 5/5 motor strength present throughout Sensory Exam: No Sensory deficit (Neuro) Extrem: General: Yes normal to inspection Psych: Appearance: grossly normal Results Labs CBC & Chem 7: 01/24/22 04:12 01/24/22 04:12 Labs: Short CBC 01/23/22 01/24/22 Range/Units 16:47 04:12 WBC 14.8 H 13.2 H (4.8-10.8) X10*3/uL Hgb 5.0 L* D 8.3 L D (12.0-16.0) g/dl Hct 18.0 L* D 27.0 L D (37.0-47.0) % Plt Count 528 H 467 H (160-400) X10*3/uL [facility] 01/23/22 01/24/22 16:47 04:12 Sodium 141 142 Potassium 5.3 H 4.9 Chloride 108 110 H Carbon Dioxide 24 23 BUN 47 H D 40 H Creatinine 1.69 H 1.50 H Calcium 10.3 H 9.7 Assessment and Plan (1) Acute on chronic anemia: Status: Acute (2) GI bleed: Status: Acute Plan 1/ Acute to subacute anemia with possible melena and now more reddish stool, whilst on apixiban , received 2 units PRBC, hemodynamically stable ddX: neoplasia, advanced polyp, PUD, dieulafoy, gastritis PLAN: 1/ Clears today, trend HGB q 8 hr 2/ Can use PPI as doing 3/ EGD and colonoscopy tomorrow, Procedures Date of Service Date of Service: 01/24/22
[2022-01-24] MEDS: Pantoprazole Sodium 40 MG/10 ML VIAL IVPUSH ×2 (07:16→16:23)
--- NOTE | 2022-01-24 07:27 | PC.NURSE ---
assisted pt to the bedside commode, then back into bed comfortably, pt set up with her breakfast tray
[2022-01-24] MEDS: Acetaminophen 325 MG TABLET 650 MG PO ×2 (07:59→16:21)
--- NOTE | 2022-01-24 08:00 | PC.NURSE ---
Report received from Gina GARDNER. Patient reports no abdominal pain at this time, but has a severe headache each time she coughs, pain 10/10. Respirations regular and even. Skin PWD. + bowel sounds x 4. Patient up to commode with 1 assist. Sat and ate liquid diet breakfast independently. Medicated with PRN Tylenol and made hospitalist aware of headache. Will continue to monitor.
[2022-01-24] MEDS: Atorvastatin Calcium 40 MG TABLET PO (09:44)
[2022-01-24] MEDS: lisinopriL 40 MG TABLET PO (09:45)
--- NOTE | 2022-01-24 09:47 | MHC.CM.PN ---
Met with patient in regards to discharge planning. Patient lives with her son and his family, will occasionally use a walker for mobility and had no services prior to coming to the hospital. No services anticipated to be needed because patient is not home bound. PCP verified. HCP completed signed and witnessed. Original given to patient. Copy placed in chart. IMM explained and signed. Patient's family will transport her home when medically stable. Continue to monitor for d/c needs.
[2022-01-24] MEDS: hydroCHLOROthiazide 50 MG TABLET PO (10:00)
--- NOTE | 2022-01-24 11:00 | PC.NURSE ---
Patient continues to rest on stretcher, reports improved comfort with headache with Tylenol. Respirations regular and even. Skin PWD. Up to commode to urinate with one assist. Will continue to monitor.
--- NOTE | 2022-01-24 13:39 | P.PNIM_ITS ---
Subjective Subjective Date of Service: 01/24/22 Interval History: Seen and evaluated this morning Denies any overnight bloody bowel motions Hemoglobin improved after transfusion Review of Systems No fever, chills or weakness No chest pain, palpitation No shortness of breath or coughing No abdominal pain, nausea or vomiting No urinary symptoms No any rash or wounds Physical Exam Vital Signs: Vital Signs: Last Vital Signs Temp 98.1 F 01/24/22 07:16 Pulse 72 01/24/22 10:00 Resp 16 01/24/22 10:00 BP 162/52 H 01/24/22 10:00 Pulse Ox 97 01/24/22 10:00 O2 Del Method 01/24/22 10:00 BMI result Body Mass Index 43.2 Const: Other: Constitutional : Alert, oriented, not in distress Neck : Normal inspection, Supple Cardiovascular : RRR, no JVP, no lower extremity edema Respiratory : fair bilateral air entry, no crackles, wheezes or rhonchi Gastrointestinal: soft, lax, Normal bowel sounds, Non tender Skin : Warm, Dry Neurological : Alert & oriented x3, No focal deficit , CN 2-12 within normal Objective Data Active Medications Acetaminophen (Acetaminophen 325 Mg Tablet) 650 mg PO Q6H PRN PRN Reason: Pain, Mild (Pain Scale 1-3) Last Admin: 01/24/22 07:59 Dose: 650 mg Documented By: PAMELA Atorvastatin Calcium (Atorvastatin Calcium 40 Mg Tablet) 40 mg PO DAILY [facility] Last Admin: 01/24/22 09:44 Dose: 40 mg Documented By: PAMELA Docusate Sodium (Docusate Sodium 100 Mg Capsule) 100 mg PO DAILY PRN PRN Reason: Constipation Hydrochlorothiazide (Hydrochlorothiazide 50 Mg Tablet) 50 mg PO DAILY [facility]; Protocol Last Admin: 01/24/22 10:00 Dose: 50 mg Documented By: PAMELA Lisinopril (Lisinopril 40 Mg Tablet) 40 mg PO DAILY [facility]; Protocol Last Admin: 01/24/22 09:45 Dose: 40 mg Documented By: PAMELA Ondansetron HCl (Ondansetron Hcl 4 Mg/2 Ml Vial) 4 mg IVPUSH Q8H PRN PRN Reason: Nausea and Vomiting Pantoprazole Sodium (Pantoprazole Sodium 40 Mg/10 Ml Vial) 40 mg IVPUSH BID@0630,1630 [facility] Last Admin: 01/24/22 07:16 Dose: 40 mg Documented By: PAMELA Pharmacy Consult (Consult Rx Perform Med Rec) 1 each MISCELLANE ONCE PRN PRN Reason: Consult order Polyethylene Glycol/Electrolytes (Peg 3350/Na Sulf,Bicarb,Cl/Kcl 4,000 Ml Soln.Recon) 4,000 ml PO ONCE ONE Stop: 01/24/22 18:16 Sodium Chloride (0.9 % Sodium Chloride Flush 3 Ml Syringe) 3 ml IVFLUSH QSHIFT [facility] Last Admin: 01/24/22 08:00 Dose: Not Given Documented By: PAMELA Non-Admin Reason: Med Not Available Labs CBC & Chem 7: 01/24/22 04:12 01/24/22 04:12 Labs: Laboratory Results - last 24 hr 01/23/22 01/23/22 01/23/22 16:47 16:47 17:43 MCV 92.8 MCH 25.8 L MCHC 27.8 L RDW 18.1 H Plt Count 528 H MPV 9.6 Immature Gran % (Auto) 1.2 H Neut % (Auto) 78.1 H Lymph % (Auto) 11.1 L Dillon % (Auto) 8.3 Eos % (Auto) 1.2 Baso % (Auto) 0.1 Lymph # (Auto) 1.6 Dillon # (Auto) 1.2 Eos # (Auto) 0.2 Baso # (Auto) 0.0 Abs Immat Gran (auto) 0.18 H Absolute Neuts (auto) 11.5 H Absolute Nucleated RBC 0.020 H Nucleated RBC % (auto) 0.1 Smear Path Review SEE NOTE Anion Gap 14 Estim Creat Clear Calc 36.4 Estimated GFR 29 Random Glucose 118 H Calcium 10.3 H COVID-19 (SERGIO) COVID-19 Clin Com Blood Type A Positive Antibody Screen NEGATIVE Crossmatch See Detail 01/23/22 01/24/22 01/24/22 18:59 04:12 04:12 MCV 90.0 MCH 27.7 MCHC 30.7 L RDW 17.5 H Plt Count 467 H MPV 10.3 Immature Gran % (Auto) 1.1 H Neut % (Auto) 68.8 Lymph % (Auto) 18.5 L Dillon % (Auto) 8.9 Eos % (Auto) 2.5 Baso % (Auto) 0.2 Lymph # (Auto) 2.4 Dillon # (Auto) 1.2 Eos # (Auto) 0.3 Baso # (Auto) 0.0 Abs Immat Gran (auto) 0.14 H Absolute Neuts (auto) 9.1 H Absolute Nucleated RBC 0.000 Nucleated RBC % (auto) 0.0 Smear Path Review Anion Gap 14 Estim Creat Clear Calc 41.0 Estimated GFR 34 Random Glucose 98 Calcium 9.7 COVID-19 (SERGIO) Negative COVID-19 Clin Com See Note Blood Type Antibody Screen Crossmatch Assessment and Plan (1) Acute on chronic anemia: Status: Acute (2) GI bleed: Status: Acute Plan 76-year-old female with a history of PE/DVT on apixaban presents to the hospital with GI bleed # GI bleed upper versus lower unclear on apixaban for history of DVT hold apixaban post 2 units of PRBC transfuse to a hemoglobin of 7 follow CBC GI to do upper and lower endoscopy tomorrow clear liquids # acute on chronic anemia likely secondary to GI bleed status post unit of PRBC received in the ED follow CBC hold NSAIDs # DVT/PE hold apixaban # hypertension continue home medications DVT prophylaxis: SCDs The patient will need overnight hospital stay for evaluation of GI bleed to prevent possible decompensation to severe anemia. Quality Stroke Does the patient have a stroke diagnosis?: No VTE Prior VTE?: No VTE Risk Level:: Medical - moderate - high VTE Device Contraindication: N/A - Device Ordered VTE Drug Contraindication: Treatment Not Indicated
[2022-01-24 15:17] LABS: Hematocrit 28.3 % (37.0-47.0); Hemoglobin 8.7 g/dl (12.0-16.0); Mean Corpuscular HGB Conc 30.7 g/dl (31.0-35.0); Mean Corpuscular Hemoglobin 27.6 pg (27.0-33.0); Mean Corpuscular Volume 89.8 fL (80.0-98.0); Mean Platelet Volume 9.9 fL (9.4-12.3); NRBC Pct Auto 0.2 /100WBC (0.0-0.2); Platelet Count 455 X10*3/uL (160-400); Red Blood Count 3.15 X10*6/uL (4.20-5.50); Red Cell Distribution Width 18.3 % (11.0-16.0)
[2022-01-24] MEDS: 0.9 % Sodium Chloride Flush 3 ML SYRINGE IVFLUSH ×2 (16:23→19:32)
[2022-01-24] MEDS: PEG 3350/Na Sulf,Bicarb,Cl/KCL 4,000 ML SOLN.RECON 4000 ML PO (19:27)
[2022-01-25] VITALS (8 sets, daily range): BP systolic 118–162; BP diastolic 39–88; PULSE 78–97; RESP 14–18; TEMP 36.1–37.1; O2SAT 97–100
[2022-01-25] MEDS: Pantoprazole Sodium 40 MG/10 ML VIAL IVPUSH (06:14)
[2022-01-25 06:54] LABS: Hematocrit 26.6 % (37.0-47.0); Hemoglobin 8.1 g/dl (12.0-16.0); Mean Corpuscular HGB Conc 30.5 g/dl (31.0-35.0); Mean Corpuscular Hemoglobin 27.6 pg (27.0-33.0); Mean Corpuscular Volume 90.5 fL (80.0-98.0); Mean Platelet Volume 10.4 fL (9.4-12.3); Platelet Count 452 X10*3/uL (160-400); Red Blood Count 2.94 X10*6/uL (4.20-5.50); Red Cell Distribution Width 18.4 % (11.0-16.0); White Blood Count 16.5 X10*3/uL (4.8-10.8)
[2022-01-25 07:20] LABS: Anion Gap 15 (12-20); Blood Urea Nitrogen 28 mg/dL (9-16); Calcium 9.5 mg/dL (8.4-10.2); Carbon Dioxide 26 mmol/L (22-29); Chloride 108 mmol/L (96-108); Creatinine Clr Calc Pharmacy 42.7; Estimated Glomerular Filt Rate 35; Glucose Random 98 mg/dL (60-115); Potassium 4.9 mmol/L (3.3-5.1); Sodium 144 mmol/L (135-145)
[2022-01-25] MEDS: lisinopriL 40 MG TABLET PO (07:40)
[2022-01-25] MEDS: hydroCHLOROthiazide 50 MG TABLET PO (07:40)
[2022-01-25] MEDS: 0.9 % Sodium Chloride Flush 3 ML SYRINGE IVFLUSH (07:40)
--- NOTE | 2022-01-25 10:14 | HO.PM.IMPN ---
Subjective Subjective Date of Service: 01/25/22 Interval History: Seen and evaluated this morning Denies any overnight bloody bowel motions Prepared for upper and lower endoscopy this morning Review of Systems No fever, chills or weakness No chest pain, palpitation No shortness of breath or coughing No abdominal pain, nausea or vomiting No urinary symptoms No any rash or wounds Physical Exam Vital Signs: Vital Signs: Last Vital Signs Temp 98.3 F 01/25/22 07:28 Pulse 97 01/25/22 07:28 Resp 14 01/25/22 07:28 BP 147/64 H 01/25/22 07:28 Pulse Ox 97 01/25/22 07:28 O2 Del Method 01/25/22 07:28 BMI result Body Mass Index 43.2 Const: Other: Constitutional : Alert, oriented, not in distress Neck : Normal inspection, Supple Cardiovascular : RRR, no JVP, no lower extremity edema Respiratory : fair bilateral air entry, no crackles, wheezes or rhonchi Gastrointestinal: soft, lax, Normal bowel sounds, Non tender Skin : Warm, Dry Neurological : Alert & oriented x3, No focal deficit , CN 2-12 within normal Objective Data Active Medications Acetaminophen (Acetaminophen 325 Mg Tablet) 650 mg PO Q6H PRN PRN Reason: Pain, Mild (Pain Scale 1-3) Last Admin: 01/24/22 16:21 Dose: 650 mg Documented By: JODY Atorvastatin Calcium (Atorvastatin Calcium 40 Mg Tablet) 40 mg PO DAILY [facility] Last Admin: 01/25/22 07:41 Dose: Not Given Documented By: JODY Non-Admin Reason: NPO Docusate Sodium (Docusate Sodium 100 Mg Capsule) 100 mg PO DAILY PRN PRN Reason: Constipation Hydrochlorothiazide (Hydrochlorothiazide 50 Mg Tablet) 50 mg PO DAILY [facility]; Protocol Last Admin: 01/25/22 07:40 Dose: 50 mg Documented By: JODY Lisinopril (Lisinopril 40 Mg Tablet) 40 mg PO DAILY [facility]; Protocol Last Admin: 01/25/22 07:40 Dose: 40 mg Documented By: JODY Ondansetron HCl (Ondansetron Hcl 4 Mg/2 Ml Vial) 4 mg IVPUSH Q8H PRN PRN Reason: Nausea and Vomiting Pantoprazole Sodium (Pantoprazole Sodium 40 Mg/10 Ml Vial) 40 mg IVPUSH BID@9501,6663 [facility] Last Admin: 01/25/22 06:14 Dose: 40 mg Documented By: JERO Pharmacy Consult (Consult Rx Perform Med Rec) 1 each MISCELLANE ONCE PRN PRN Reason: Consult order Sodium Chloride (0.9 % Sodium Chloride Flush 3 Ml Syringe) 3 ml IVFLUSH QSHIFT [facility] Last Admin: 01/25/22 07:40 Dose: 3 ml Documented By: JODY Labs CBC & Chem 7: 01/25/22 06:09 01/25/22 06:09 Labs: Laboratory Results - last 24 hr 01/23/22 01/24/22 01/25/22 16:47 15:00 06:09 MCV 89.8 90.5 MCH 27.6 27.6 MCHC 30.7 L 30.5 L RDW 18.3 H 18.4 H Plt Count 455 H 452 H MPV 9.9 10.4 Absolute Nucleated RBC 0.020 H 0.000 Nucleated RBC % (auto) 0.2 0.0 Smear Path Review SEE NOTE Anion Gap Estim Creat Clear Calc Estimated GFR Random Glucose Calcium 01/25/22 06:09 MCV MCH MCHC RDW Plt Count MPV Absolute Nucleated RBC Nucleated RBC % (auto) Smear Path Review Anion Gap 15 Estim Creat Clear Calc 42.7 Estimated GFR 35 Random Glucose 98 Calcium 9.5 Assessment and Plan (1) Acute on chronic anemia: Status: Acute (2) GI bleed: Status: Acute Plan 76-year-old female with a history of PE/DVT on apixaban presents to the hospital with GI bleed # GI bleed upper versus lower unclear on apixaban for history of DVT hold apixaban Hemoglobin of 8.1 post 2 units of PRBC follow CBC GI to do upper and lower endoscopy today To advanced diet and restart Eliquis after the procedures to monitor for rebleeding # acute on chronic blood loss anemia secondary to GI bleed post unit of PRBC received in the ED follow CBC hold NSAIDs # DVT/PE hold apixaban # hypertension continue home medications DVT prophylaxis: SCDs The patient will need overnight hospital stay for evaluation of GI bleed to prevent possible decompensation to severe anemia. Quality Stroke Does the patient have a stroke diagnosis?: No VTE Prior VTE?: No VTE Risk Level:: Medical - moderate - high VTE Device Contraindication: N/A - Device Ordered VTE Drug Contraindication: Treatment Not Indicated
--- NOTE | 2022-01-25 16:22 | MHC.SHP ---
Pre-Procedural Eval Section A Date of Service: 01/25/22 The patient is an INPATIENT: Yes The History & Physical has been completed within 30 days and I have reviewed it.: Yes Section B Chief Complaint: GI bleed, anemia Allergies: Allergies Allergy/AdvReac Type Severity Reaction Status Date / Time levofloxacin [From LEVAQUIN] Allergy Severe angioedema Verified 01/23/22 16:12 metronidazole [From FLAGYL] Allergy Severe angioedema Verified 01/23/22 16:12 codeine [CODEINE] Allergy Intermediate RASH, hives Verified 01/23/22 16:12 codeine Allergy Unknown hives Uncoded 10/31/21 14:02 Plan Diagnosis/Plan: Unchanged I have reviewed the history and physical and performed a pertinent physical examination on my patient. No changes have occurred unless specified.
--- NOTE | 2022-01-25 16:23 | W.PM.OPN ---
Operative Note Operative Note Date of Service: 01/25/22 Narrative: Operative Information Procedure Description: EGD, Colonoscopy Indication: anemia. Gi bleeding Anesthesia: MAC FLEXIBLE TRANSORAL UPPER GASTROINTESTINAL ENDOSCOPY AND COLONOSCOPY PROCEDURE NOTE UPPER ENDOSCOPY Consent: Indications for the procedure and potential complications of bleeding, perforation, reaction to medications and missed diagnosis were discussed with the patient and informed consent was obtained. Instrument: Olympus GIF H 190 J mid size upper endoscope Monitoring: Vital signs and clinical assessment, continuous EKG monitoring, Pulse oximetry, Carbon Dioxide monitoring and blood pressure monitoring were done throughout the procedure. Procedure: The patient was placed in the left lateral decubitis position and pre-procedure medications were administered and a bite block was placed. The endoscope was inserted into the mouth and advanced under direct vision to the third part of duodenum. A careful inspection was made as the upper endoscope was withdrawn including a retroflexed examination of the proximal stomach; Findings and interventions are described below. Findings: Larynx:normal Esophagus: GE junction at 38 cm, diaphragm hiatus at 38 cm, mild esophagitis Stomach: x 2 Ryan grade III ulcers about 10-12 mm in the pre pyloric area with streaky erosive lesions in the antrum. In the lesser curve of stomach close to the proximal body there was a bleeding point which eith consistent bleeding. x 3 clips were applied for hemostasis and then hemospray. The mucosa was blanched in areas consistent with possible ischemia. Biopsies were obtained. Grade 2 flap valve on retroflexed examination of the cardia. Duodenum: Normal bulb and descending duodenum, Intervention: Biopsies as noted above, hemostasis and control of bleeding COLONOSCOPY Instrument: Olympus variable stiffness pediatric scope 190L Colonoscopy Monitoring: Vital signs and clinical assessment, continuous EKG monitoring, Pulse oximetry, Carbon Dioxide monitoring and blood pressure monitoring were done throughout the procedure. Procedure: The patient was placed in the left lateral decubitis position and pre-procedure medications were administered. After a digital rectal examination of the ano-rectum, the video colonoscope was inserted into the rectum and advanced through the colon to the cecum/TI. The colonoscope was slowly withdrawn in a retrograde panoramic fashion and the colon mucosa was carefully examined including a retroflexed view of the rectum. Findings and interventions are described below. Procedure Difficulty: v difficult due to severely strictured and tortuous colon from severe diverticulosis Findings: Terminal Ileum-not reached Cecum:not reached Ascending Colon: not reached Transverse Colon -normal Descending Colon:severe diverticulosis Sigmoid Colon: severe diverticulosis with fixed tortuous colon and narrow lumen Rectum: Retroflexion with small internal hemorrhoids, grade I Anorectum - normal Colon preparation: [place] Bowel Preparation Scale Right colon; n/a Transverse colon: 3 Left colon; 3 (0 = Unprepared colon segment with mucosa not seen due to solid stool that cannot be cleared. 1 = Portion of mucosa of the colon segment seen, but other areas of the colon segment not well seen due to staining, residual stool and/or opaque liquid. 2 = Minor amount of residual staining, small fragments of stool and/or opaque liquid, but mucosa of colon segment seen well. 3 = Entire mucosa of colon segment seen well with no residual staining, small fragments of stool or opaque liquid) Impression and Post Procedure Diagnosis: Endoscopy Findings: gastric ulcers and erosive gastritis dieulafoy lesion esophagitis Colonoscopy Findings: internal hemorrhoids diverticular disease Plan: Await Pathology results Can consider o/p Ct colonography vs single balloon enteroscopy for further evaluation restart anticoagulation in 24 hrs, can use heparin if needed in meantime in 4-6 hours Above findings were reviewed with the patient and relevant handouts were provided if indicated.
--- NOTE | 2022-01-25 17:40 | HO.ANESPROP2 ---
[facility] Active Problems Active Problems: All Active Problems (Updated 01/24/22 @ 06:28 by Ashanti Edmond MD) Acute on chronic anemia (Acute) GI bleed (Acute) Actinic keratosis (Acute) Anemia (Acute) Keratotic lesion (Acute) Bronchitis (Acute) Impaired fasting glucose (Acute) History of pulmonary embolism (Acute) Breast cancer screening (Acute) Exertional dyspnea (Acute) Morbid obesity with BMI of 40.0-44.9, adult (Acute) Osteopenia (Acute) Chronic idiopathic urticaria (Acute) Chronic kidney disease (CKD), stage III (moderate) (Acute) Pure hypercholesterolemia (Acute) Benign essential hypertension (Acute) Skin lesions (Acute) Past Medical History Medical History Anemia Benign essential hypertension Breast cancer screening Chronic idiopathic urticaria Chronic kidney disease (CKD), stage III (moderate) Exertional dyspnea History of pulmonary embolism Impaired fasting glucose Morbid obesity with BMI of 40.0-44.9, adult Osteopenia Pure hypercholesterolemia Skin lesions Family History Family History Father Liver cirrhosis Mother Substance abuse Family history of problems with anesthesia: No Surgical History Surgical History History of appendectomy History of back surgery History of Problems with Anesthesia: No Social History Social History Household Members: Family and Children Housing: House Do you presently have visiting nurse or other home services: No Alcohol intake: never Patient Tobacco Use Status: Former Tobacco user Second Hand Smoke Exposure: Yes Advance Directives Date on File: 01/24/22 service: No Current occupational status: retired Cognitive needs: No Hearing needs: No Vision needs: Yes (wears glasses) Meds Allergies Allergy/AdvReac Type Severity Reaction Status Date / Time levofloxacin [From LEVAQUIN] Allergy Severe angioedema Verified 01/23/22 16:12 metronidazole [From FLAGYL] Allergy Severe angioedema Verified 01/23/22 16:12 codeine [CODEINE] Allergy Intermediate RASH, hives Verified 01/23/22 16:12 codeine Allergy Unknown hives Uncoded 10/31/21 14:02 Active Medications: Current Medications Acetaminophen (Acetaminophen 325 Mg Tablet) 650 mg PO Q6H PRN PRN Reason: Pain, Mild (Pain Scale 1-3) Last Admin: 01/24/22 16:21 Dose: 650 mg Atorvastatin Calcium (Atorvastatin Calcium 40 Mg Tablet) 40 mg PO DAILY [facility] Last Admin: 01/25/22 07:41 Dose: Not Given Docusate Sodium (Docusate Sodium 100 Mg Capsule) 100 mg PO DAILY PRN PRN Reason: Constipation Hydrochlorothiazide (Hydrochlorothiazide 50 Mg Tablet) 50 mg PO DAILY [facility]; Protocol Last Admin: 01/25/22 07:40 Dose: 50 mg Lisinopril (Lisinopril 40 Mg Tablet) 40 mg PO DAILY [facility]; Protocol Last Admin: 01/25/22 07:40 Dose: 40 mg Ondansetron HCl (Ondansetron Hcl 4 Mg/2 Ml Vial) 4 mg IVPUSH Q8H PRN PRN Reason: Nausea and Vomiting Pantoprazole Sodium (Pantoprazole Sodium 40 Mg/10 Ml Vial) 40 mg IVPUSH BID@0630,1630 [facility] Last Admin: 01/25/22 16:59 Dose: Not Given Pharmacy Consult (Consult Rx Perform Med Rec) 1 each MISCELLANE ONCE PRN PRN Reason: Consult order Sodium Chloride (0.9 % Sodium Chloride Flush 3 Ml Syringe) 3 ml IVFLUSH QSHIFT [facility] Last Admin: 01/25/22 16:58 Dose: Not Given Exam Exam Date and Time: January 25, 2022 1740 Height,Weight and Vital Signs: Height 5 ft 5 in Weight 117.934 kg Last Vital Signs Temp 98.6 F 01/25/22 16:25 Pulse 91 01/25/22 16:25 Resp 16 01/25/22 16:25 BP 156/46 H 01/25/22 16:25 Pulse Ox 99 01/25/22 16:25 O2 Del Method 01/25/22 16:25 Pertinent Lab Results Pertinent Lab Results: Laboratory Tests 01/23/22 01/23/22 01/23/22 16:47 16:47 17:43 WBC 14.8 H RBC 1.94 L D Hgb 5.0 L* D Hct 18.0 L* D MCV 92.8 MCH 25.8 L MCHC 27.8 L RDW 18.1 H Plt Count 528 H MPV 9.6 Immature Gran % (Auto) 1.2 H Neut % (Auto) 78.1 H Lymph % (Auto) 11.1 L Taney % (Auto) 8.3 Eos % (Auto) 1.2 Baso % (Auto) 0.1 Lymph # (Auto) 1.6 Taney # (Auto) 1.2 Eos # (Auto) 0.2 Baso # (Auto) 0.0 Abs Immat Gran (auto) 0.18 H Absolute Neuts (auto) 11.5 H Absolute Nucleated RBC 0.020 H Nucleated RBC % (auto) 0.1 Smear Path Review SEE NOTE Sodium 141 Potassium 5.3 H Chloride 108 Carbon Dioxide 24 Anion Gap 14 BUN 47 H D Creatinine 1.69 H Estim Creat Clear Calc 36.4 Estimated GFR 29 Random Glucose 118 H Calcium 10.3 H Troponin I High Sens COVID-19 (SERGIO) COVID-19 Clin Com Blood Type A Positive Antibody Screen NEGATIVE Crossmatch See Detail 01/23/22 01/23/22 01/24/22 17:55 18:59 04:12 WBC 13.2 H RBC 3.00 L D Hgb 8.3 L D Hct 27.0 L D MCV 90.0 MCH 27.7 MCHC 30.7 L RDW 17.5 H Plt Count 467 H MPV 10.3 Immature Gran % (Auto) 1.1 H Neut % (Auto) 68.8 Lymph % (Auto) 18.5 L Taney % (Auto) 8.9 Eos % (Auto) 2.5 Baso % (Auto) 0.2 Lymph # (Auto) 2.4 Taney # (Auto) 1.2 Eos # (Auto) 0.3 Baso # (Auto) 0.0 Abs Immat Gran (auto) 0.14 H Absolute Neuts (auto) 9.1 H Absolute Nucleated RBC 0.000 Nucleated RBC % (auto) 0.0 Smear Path Review Sodium Potassium Chloride Carbon Dioxide Anion Gap BUN Creatinine Estim Creat Clear Calc Estimated GFR Random Glucose Calcium Troponin I High Sens 7.9 COVID-19 (SERGIO) Negative COVID-19 Clin Com See Note Blood Type Antibody Screen Crossmatch 01/24/22 01/24/22 01/25/22 04:12 15:00 06:09 WBC 13.0 H 16.5 H RBC 3.15 L 2.94 L Hgb 8.7 L 8.1 L Hct 28.3 L 26.6 L MCV 89.8 90.5 MCH 27.6 27.6 MCHC 30.7 L 30.5 L RDW 18.3 H 18.4 H Plt Count 455 H 452 H MPV 9.9 10.4 Immature Gran % (Auto) Neut % (Auto) Lymph % (Auto) Taney % (Auto) Eos % (Auto) Baso % (Auto) Lymph # (Auto) Taney # (Auto) Eos # (Auto) Baso # (Auto) Abs Immat Gran (auto) Absolute Neuts (auto) Absolute Nucleated RBC 0.020 H 0.000 Nucleated RBC % (auto) 0.2 0.0 Smear Path Review Sodium 142 Potassium 4.9 Chloride 110 H Carbon Dioxide 23 Anion Gap 14 BUN 40 H Creatinine 1.50 H Estim Creat Clear Calc 41.0 Estimated GFR 34 Random Glucose 98 Calcium 9.7 Troponin I High Sens COVID-19 (SERGIO) COVID-[employer] Blood Type Antibody Screen Crossmatch 01/25/22 06:09 WBC RBC Hgb Hct MCV MCH MCHC RDW Plt Count MPV Immature Gran % (Auto) Neut % (Auto) Lymph % (Auto) Taney % (Auto) Eos % (Auto) Baso % (Auto) Lymph # (Auto) Taney # (Auto) Eos # (Auto) Baso # (Auto) Abs Immat Gran (auto) Absolute Neuts (auto) Absolute Nucleated RBC Nucleated RBC % (auto) Smear Path Review Sodium 144 Potassium 4.9 Chloride 108 Carbon Dioxide 26 Anion Gap 15 BUN 28 H Creatinine 1.44 H Estim Creat Clear Calc 42.7 Estimated GFR 35 Random Glucose 98 Calcium 9.5 Troponin I High Sens COVID-19 (SERGIO) COVID-19 [employer] Blood Type Antibody Screen Crossmatch Airway Mallampati Class: II TM Dist: >3cm Neck ROM: Full Denture: Upper Loose/Missing/Broken Teeth: No Heart: RRR Lungs: CTA Assessment and Plan Assessment Anesthesia Assessment: Anesthesia Plan Discussed and Chart Reviewed Final Anesthetic Review Family History of Problems with Anesthesia: No History of Problems with Anesthesia: No NPO: Yes ASA Class: III and Emergency Final Preanesthetic Review: No Changes in Pt Med Stat, Meds/Allgs Chart Reviewed, Consent Obtained/Reviewed and Anes Risks/Benef Reviewed Patient Risk: Intermediate Procedure Risk: Low Anesthetic Plan Anesthetic Plan: MAC: Disposition: Standard PACU
[2022-01-25] MEDS: Acetaminophen 325 MG TABLET 650 MG PO (20:25)
[2022-01-26] VITALS (10 sets, daily range): BP systolic 100–152; BP diastolic 55–65; PULSE 86–112; RESP 12–18; TEMP 36.7–37.6; O2SAT 93–97
[2022-01-26] MEDS: 0.9 % Sodium Chloride Flush 3 ML SYRINGE IVFLUSH ×3 (00:06→15:20)
[2022-01-26] MEDS: Pantoprazole Sodium 40 MG/10 ML VIAL IVPUSH ×2 (06:01→17:18)
[2022-01-26] MEDS: Acetaminophen 325 MG TABLET 650 MG PO ×2 (06:03→17:17)
[2022-01-26 06:18] LABS: Hematocrit 24.4 % (37.0-47.0); Hemoglobin 7.3 g/dl (12.0-16.0); Mean Corpuscular HGB Conc 29.9 g/dl (31.0-35.0); Mean Corpuscular Hemoglobin 27.5 pg (27.0-33.0); Mean Corpuscular Volume 92.1 fL (80.0-98.0); Platelet Count 397 X10*3/uL (160-400); Red Blood Count 2.65 X10*6/uL (4.20-5.50); Red Cell Distribution Width 18.2 % (11.0-16.0); White Blood Count 10.4 X10*3/uL (4.8-10.8)
--- NOTE | 2022-01-26 06:47 | HO.POSTANES ---
Post Anesthesia Evaluation Post Anesthesia Evaluation Vital Signs: Vital Signs Temp Pulse Resp BP Pulse Ox O2 Del Method 01/26/22 04:00 98.4 F 97 18 135/63 97 Room Air 01/26/22 00:00 98.4 F 96 18 143/64 H 97 Room Air 01/25/22 19:43 97.1 F 84 18 146/88 H 99 Room Air 01/25/22 19:15 98 F 78 18 142/39 H 97 Room Air 01/25/22 19:00 98.8 F 87 15 118/46 L 97 Room Air Anesthesia: Monitored Mental Status: Awake Pain Control: Satisfactory Nausea/Vomiting: None Hydration: Adequate Anesthesia-Related Issues: No Anes. Related Issues
[2022-01-26] MEDS: lisinopriL 40 MG TABLET PO (08:51)
[2022-01-26] MEDS: hydroCHLOROthiazide 50 MG TABLET PO (08:51)
[2022-01-26] MEDS: Atorvastatin Calcium 40 MG TABLET PO (08:51)
[2022-01-26] MEDS: ondansetron HCL 4 MG/2 ML VIAL IVPUSH (10:27)
--- NOTE | 2022-01-26 12:14 | HO.PM.IMPN ---
Subjective Subjective Date of Service: 01/26/22 Interval History: Seen and evaluated this morning Denies any overnight bloody bowel motions Hemoglobin dropped to 7.3 this morning Endoscopy done showing 2 grade 3 ulcers Review of Systems No fever, chills or weakness No chest pain, palpitation No shortness of breath or coughing No abdominal pain, nausea or vomiting No urinary symptoms No any rash or wounds Physical Exam Vital Signs: Vital Signs: Last Vital Signs Temp 98.8 F 01/26/22 11:38 Pulse 103 H 01/26/22 11:38 Resp 16 01/26/22 11:38 BP 138/62 01/26/22 11:38 Pulse Ox 94 01/26/22 11:38 O2 Del Method 01/26/22 11:38 BMI result Body Mass Index 43.2 Const: Other: Constitutional : Alert, oriented, not in distress Neck : Normal inspection, Supple Cardiovascular : RRR, no JVP, no lower extremity edema Respiratory : fair bilateral air entry, no crackles, wheezes or rhonchi Gastrointestinal: soft, lax, Normal bowel sounds, Non tender Skin : Warm, Dry Neurological : Alert & oriented x3, No focal deficit , CN 2-12 within normal Objective Data Active Medications Acetaminophen (Acetaminophen 325 Mg Tablet) 650 mg PO Q6H PRN PRN Reason: Pain, Mild (Pain Scale 1-3) Last Admin: 01/26/22 06:03 Dose: 650 mg Documented By: KEVIN Atorvastatin Calcium (Atorvastatin Calcium 40 Mg Tablet) 40 mg PO DAILY [facility] Last Admin: 01/26/22 08:51 Dose: 40 mg Documented By: BERE Docusate Sodium (Docusate Sodium 100 Mg Capsule) 100 mg PO DAILY PRN PRN Reason: Constipation Heparin Sodium (Porcine) (Heparin Sodium,Porcine 5,000 Unit/Ml Vial) 4,700 unit 40 unit/kg (4700 unit) IVPUSH PROTOCOL BOLUS PRN; Protocol PRN Reason: 40 unit/kg - Heparin Protocol Heparin Sodium (Porcine) (Heparin Sodium,Porcine 5,000 Unit/Ml Vial) 9,400 unit 80 unit/kg (9400 unit) IVPUSH PROTOCOL BOLUS PRN; Protocol PRN Reason: 80 unit/kg - Heparin Protocol Hydrochlorothiazide (Hydrochlorothiazide 50 Mg Tablet) 50 mg PO DAILY [facility]; Protocol Last Admin: 01/26/22 08:51 Dose: 50 mg Documented By: BERE Heparin Sodium/Sodium Chloride () 25,000 unit in 250 mls @ 0 mls/hr IVCONT .Q0M [facility]; Protocol Lisinopril (Lisinopril 40 Mg Tablet) 40 mg PO DAILY [facility]; Protocol Last Admin: 01/26/22 08:51 Dose: 40 mg Documented By: BERE Ondansetron HCl (Ondansetron Hcl 4 Mg/2 Ml Vial) 4 mg IVPUSH Q8H PRN PRN Reason: Nausea and Vomiting Last Admin: 01/26/22 10:27 Dose: 4 mg Documented By: BERE Pantoprazole Sodium (Pantoprazole Sodium 40 Mg/10 Ml Vial) 40 mg IVPUSH BID@0630,1630 [facility] Last Admin: 01/26/22 06:01 Dose: 40 mg Documented By: KEVIN Pharmacy Consult (Consult Rx Perform Med Rec) 1 each MISCELLANE ONCE PRN PRN Reason: Consult order Sodium Chloride (0.9 % Sodium Chloride Flush 3 Ml Syringe) 3 ml IVFLUSH QSHIFT [facility] Last Admin: 01/26/22 08:51 Dose: 3 ml Documented By: BERE Labs CBC & Chem 7: 01/26/22 05:55 01/25/22 06:09 Labs: Laboratory Results - last 24 hr 01/23/22 01/26/22 17:43 05:55 MCV 92.1 MCH 27.5 MCHC 29.9 L RDW 18.2 H Plt Count 397 MPV 10.0 Absolute Nucleated RBC 0.000 Nucleated RBC % (auto) 0.0 Blood Type A Positive Antibody Screen NEGATIVE Crossmatch See Detail Assessment and Plan (1) Acute on chronic anemia: Status: Acute (2) GI bleed: Status: Acute Plan 76-year-old female with a history of PE/DVT on apixaban presents to the hospital with GI bleed # GI bleed upper versus lower unclear on apixaban for history of DVT Continue to hold apixaban, start heparin infusion and monitor for any possible bleeding follow CBC EGD showed grade through ulcers, evidence of bleeding point, mucosa concern of ischemia. Hemostasis achieved. Colonoscopy done showing severe diverticulosis and grade 1 hemorrhoids with no active bleeding. Diet advanced irregular restart Eliquis tomorrow if no evidence of bleeding # acute on chronic blood loss anemia Hemoglobin dropped again to 7.3 secondary to GI bleed To give 3rd unit of blood today follow CBC hold NSAIDs # DVT/PE hold apixaban, on heparin drip # hypertension continue home medications DVT prophylaxis Heparin drip The patient will need overnight hospital stay for monitoring of possible bleeding after starting anticoagulation through heparin to prevent possible decompensation into severe anemia. Quality Stroke Does the patient have a stroke diagnosis?: No VTE Prior VTE?: No VTE Risk Level:: Medical - moderate - high VTE Device Contraindication: N/A - Device Ordered VTE Drug Contraindication: Treatment Not Indicated
[2022-01-26 12:27] LABS: Prothrombin Time 11.5 SEC (10.0-13.1)
[2022-01-26 12:30] LABS: PTT Heparin Drip 25.4 SEC (53-77.9)
[2022-01-26] MEDS: Heparin Sodium,Porcine/1/2NS 25,000 UNIT/250 ML IV.SOLN 16.51 UNIT IVCONT (12:48)
[2022-01-26 19:17] LABS: Hematocrit 29.4 % (37.0-47.0); Mean Corpuscular HGB Conc 30.6 g/dl (31.0-35.0); Mean Corpuscular Hemoglobin 28.2 pg (27.0-33.0); Mean Corpuscular Volume 92.2 fL (80.0-98.0); Mean Platelet Volume 10.3 fL (9.4-12.3); Platelet Count 440 X10*3/uL (160-400); Red Blood Count 3.19 X10*6/uL (4.20-5.50); Red Cell Distribution Width 18.1 % (11.0-16.0); White Blood Count 13.5 X10*3/uL (4.8-10.8)
[2022-01-26 19:28] LABS: PTT Heparin Drip 73.3 SEC (53-77.9)
[2022-01-27] MEDS: Acetaminophen 325 MG TABLET 650 MG PO ×2 (01:09→10:50)
[2022-01-27 02:29] LABS: PTT Heparin Drip 147.3 SEC (53-77.9)
--- NOTE | 2022-01-27 02:41 | MHC.PIE ---
p; ptt 147.3 i; hep drip on hold. next ptt ordered for 0330. dr [facility]
[2022-01-27 03:45] LABS: PTT Heparin Drip 83.7 SEC (53-77.9)
[2022-01-27] MEDS: Heparin Sodium,Porcine/1/2NS 25,000 UNIT/250 ML IV.SOLN 11.79 UNIT IVCONT (03:50)
[2022-01-27 04:00] VITALS: BP 129/58; PULSE 93; RESP 14; TEMP 36; O2SAT 94
[2022-01-27] MEDS: Pantoprazole Sodium 40 MG/10 ML VIAL IVPUSH (06:01)
[2022-01-27 06:54] LABS: Hematocrit 25.9 % (37.0-47.0); Mean Corpuscular HGB Conc 30.9 g/dl (31.0-35.0); Mean Corpuscular Hemoglobin 28.3 pg (27.0-33.0); Mean Corpuscular Volume 91.5 fL (80.0-98.0); Mean Platelet Volume 10.3 fL (9.4-12.3); Platelet Count 369 X10*3/uL (160-400); Red Blood Count 2.83 X10*6/uL (4.20-5.50); Red Cell Distribution Width 17.7 % (11.0-16.0); White Blood Count 12.1 X10*3/uL (4.8-10.8)
[2022-01-27 07:23] LABS: Anion Gap 15 (12-20); Blood Urea Nitrogen 29 mg/dL (9-16); Calcium 8.9 mg/dL (8.4-10.2); Carbon Dioxide 23 mmol/L (22-29); Chloride 107 mmol/L (96-108); Creatinine Clr Calc Pharmacy 32.6; Estimated Glomerular Filt Rate 26; Glucose Random 111 mg/dL (60-115); Sodium 141 mmol/L (135-145)
[2022-01-27 07:56] VITALS: BP 150/65; PULSE 99; RESP 16; TEMP 36.9; O2SAT 95
[2022-01-27] MEDS: lisinopriL 40 MG TABLET PO (10:13)
[2022-01-27] MEDS: hydroCHLOROthiazide 50 MG TABLET PO (10:13)
[2022-01-27] MEDS: Atorvastatin Calcium 40 MG TABLET PO (10:14)
[2022-01-27 10:24] LABS: PTT Heparin Drip 67.3 SEC (53-77.9)
[2022-01-27] MEDS: Omeprazole 40 MG CAPSULE.DR PO (10:46)
[2022-01-27] MEDS: Apixaban 5 MG TABLET PO (10:46)
[2022-01-27 11:39] VITALS: BP 127/57; PULSE 94; RESP 18; TEMP 37.2; O2SAT 95
--- NOTE | 2022-01-27 12:50 | PM.DS ---
DS: Providers Provider Date of Service: 01/27/22 Date of admission: 01/23/22 21:12 Primary care physician: Remigio Hooks MD Consults: 01/23/22 21:10 Consult to Gastroenterology Routine Consulting Provider: Elli Todd Reason for consultation: GI bleed Has provider been notified: Yes DS: Diagnosis Discharge Diagnosis (1) Acute on chronic anemia: Status: Acute (2) GI bleed: Status: Acute DS: Summary Hospital Course Hospital Course: Admission note HPI This is a 76-year-old female with past medical history of HTN, CKD, history of DVT/pulmonary embolism on apixaban presents to the hospital with multiple episodes of bloody bowel movements.? Patient reports that her bowel movements initially began to turn tarry black yesterday followed by multiple episodes of bright blood blood per rectum.? She reports diffuse abdominal pain that is about 8/10, intermittent, nonradiating, reports no headache or change in vision, slight dizziness and shortness of breath on exertion, no chest pain, no palpitations, no urinary symptoms and no lower extremity edema.? She feels overall very fatigued and low energy, she has also lost appetite for the past 2 days.? No numbness tingling or weakness.? Patient denies any use of NSAIDs but on review of her medications she does have ibuprofen prescribed On arrival to the ED patient's vitals were found to be significant for slightly elevated blood pressure otherwise unremarkable Labs are significant for WBC count of 14.8, hemoglobin of 5 hematocrit of 18, previously 8.8 and 30 in October, MCV of 92.8, potassium 5.3, BUN of 47 with a baseline around 30s, creatinine of 1.69 which is around her baseline, Patient abdominal CT negative but shows diverticulosis with no diverticulitis Hospital course The patient was admitted for evaluation of multiple episodes of bloody bowel movement. Found to have a drop in her hemoglobin to almost 5 requiring 2 units of blood transfusion. Apixaban was held and the patient was started on IV pantoprazole as she was evaluated by aircraft load controller who did an upper and lower endoscopy. EGD showed 2 gastric ulcers, evidence of bleeding point, mucosa concern of ischemia.? Hemostasis achieved. Colonoscopy done showing severe diverticulosis and grade 1 hemorrhoids with no active bleeding. Diet was advanced as tolerated. The patient was restarted on heparin drip as 3rd unit of blood was transfused. No reported bleeding or major drop in hemoglobin noticed as Hb at the day of discharge was around 8. Started on Eliquis at the time of discharge. Asked to avoid usage of NSAIDs as she was taking ibuprofen 600 mg almost 3 times a day. To be discharged on omeprazole twice daily. Start omeprazole 40 mg twice Daily You cannot use any ibuprofen, Aleve or Motrin To follow-up with Dr. Todd from Gastroenterology as outpatient To repeat blood test next week Time Spent with Patient Time attestation: Total time spent providing and/or coordinating discharge services: Discharge coordination time: Greater than 30 minutes Quality: Safe Use of Opioids Does Pt have an Active Cancer Diagnosis on the Problem List?: No Quality: Stroke Does the patient have a stroke diagnosis?: No Physical Exam Vital Signs: Vital Signs: Last Vital Signs Temp 98.9 F 01/27/22 11:39 Pulse 94 01/27/22 11:39 Resp 18 01/27/22 11:39 BP 127/57 L 01/27/22 11:39 Pulse Ox 95 01/27/22 11:39 O2 Del Method 01/27/22 11:39 BMI result Body Mass Index 43.2 Const: Other: Constitutional : Alert, oriented, not in distress Neck : Normal inspection, Supple Cardiovascular : RRR, no JVP, no lower extremity edema Respiratory : fair bilateral air entry, no crackles, wheezes or rhonchi Gastrointestinal: soft, lax, Normal bowel sounds, Non tender Skin : Warm, Dry Neurological : Alert & oriented x3, No focal deficit , CN 2-12 within normal DS: Data Data Completed and Pending Pending studies at discharge: Pending at discharge 01/25/22 18:13 Surgical [PTH] Routine Labs on day of discharge: Laboratory Results - last 24 hr 01/23/22 01/26/22 01/26/22 17:43 18:34 18:34 WBC 13.5 H RBC 3.19 L D Hgb 9.0 L D Hct 29.4 L D MCV 92.2 MCH 28.2 MCHC 30.6 L RDW 18.1 H Plt Count 440 H MPV 10.3 Absolute Nucleated RBC 0.000 Nucleated RBC % (auto) 0.0 aPTT Heparin Protocol 73.3 D Sodium Potassium Chloride Carbon Dioxide Anion Gap BUN Creatinine Estim Creat Clear Calc Estimated GFR Random Glucose Calcium Crossmatch See Detail 01/27/22 01/27/22 01/27/22 01:25 03:31 06:33 WBC 12.1 H RBC 2.83 L Hgb 8.0 L Hct 25.9 L MCV 91.5 MCH 28.3 MCHC 30.9 L RDW 17.7 H Plt Count 369 MPV 10.3 Absolute Nucleated RBC 0.000 Nucleated RBC % (auto) 0.0 aPTT Heparin Protocol 147.3 H* D 83.7 H D Sodium Potassium Chloride Carbon Dioxide Anion Gap BUN Creatinine Estim Creat Clear Calc Estimated GFR Random Glucose Calcium Crossmatch 01/27/22 01/27/22 06:33 09:40 WBC RBC Hgb Hct MCV MCH MCHC RDW Plt Count MPV Absolute Nucleated RBC Nucleated RBC % (auto) aPTT Heparin Protocol 67.3 Sodium 141 Potassium 4.0 Chloride 107 Carbon Dioxide 23 Anion Gap 15 BUN 29 H Creatinine 1.88 H Estim Creat Clear Calc 32.6 Estimated GFR 26 Random Glucose 111 Calcium 8.9 D Crossmatch Imaging Chest x-ray: Radiologist's impression: ITS Impressions Abdomen/Pelvis CT 01/23/22 19:19 IMPRESSION: 1. No evidence of GI bleeding although this study has virtually no utility for detection. 2. No large bowel neoplasm is seen which could be causing bleeding. This study also has a low detection rate for such abnormalities. 3. There is extensive sigmoid diverticulosis without diverticulitis. 4. Cortical scarring and volume loss in the left kidney with associated left renal artery stenosis. Fleischner guidelines were followed. Chest X-Ray 01/24/22 09:43 IMPRESSION: Unremarkable examination. Discharge Plan Discharge Patient Disposition: Home, Self-Care Discharge Diagnosis: Acute GI bleed Stomach ulcers Referrals: Remigio Hooks MD [Primary Care Provider] - 1 Week Discharge Medications: New omeprazole 40 mg Capsule,Delayed Release(Dr/Ec) 40 mg PO BID@0630,1630 30 Days Qty: 60 0RF Continued lisinopril 40 mg tablet 40 mg PO DAILY Qty: 90 1RF ondansetron HCl 4 mg tablet 4 mg PO Q8H PRN (Reason: for nausea/vomiting) 10 Days Qty: 30 2RF Eliquis 5 mg tablet 5 mg PO BID Qty: 180 3RF hydrochlorothiazide 50 mg tablet 50 mg PO DAILY Qty: 90 3RF atorvastatin 40 mg tablet 40 mg PO DAILY Qty: 90 1RF Discontinued ibuprofen 600 mg tablet 600 mg PO TID PRN (Reason: for fever) Qty: 90 2RF Discharge Orders: Discharge Order (Routine); Ordered 01/27/22 Ordered By: Pedro Meraz Diet: Advance to usual diet Activity on Discharge: As tolerated Stand Alone Forms: Patient Portal Discharge page Other Ambulatory Orders: Complete Blood Count no Diff (Routine) Timeframe: 5 Days Facility: [facility] - Location: Laboratory Ordered By: Pedro Meraz Care Plan Goals: Read below Health Concerns: Read below Plan of Treatment: Read below Assessment: You were admitted to the hospital for evaluation of bloody bowel motions. Noted to have a drop in your hemoglobin level requiring blood transfusion of total of 3 units. Evaluated by aircraft load controller who did an upper and lower endoscopy with findings suggestive of colon polyps, ulcers in your stomach that was controlled during the procedure. You were monitored while on blood thinners for 24 hours with no recurrence of the bleeding or bloody bowel motions as your hemoglobin level remained stable. Start omeprazole 40 mg twice Daily You cannot use any ibuprofen, Aleve or Motrin To follow-up with Dr. Todd from Gastroenterology as outpatient To repeat blood test next week
--- NOTE | 2022-01-27 13:38 | MHC.CM.PN ---
PT MEDICALLY CLEARED FOR D/C HOME SELF-CARE, FAMILY FOR TRANSPORT.
== END 2022-01-27 14:03 | disposition home or self-care (01) | DRG 378 ==
LOC: HO.ED 20:10 → HO.EDOVER 21:20 → HO.S3 01-24 11:48
PROVIDERS: Internal Medicine Gastroenterology; Admitting Provider Internal Medicine; Emergency Provider Emergency Medicine; PCP Internal Medicine; Visit Provider Student in an Organized Health Care Education/Training Program
PROC: 0DJ08ZZ Inspection of Upper Intestinal Tract, Via Natural or Artificial Opening Endoscopic (ICD-10-PCS; CPT 43235; principal; 2022-01-25 16:30)
DX: K25.0 Acute gastric ulcer with hemorrhage (principal); Z68.41 Body mass index [BMI] 40.0-44.9, adult; K64.8 Other hemorrhoids; K57.30 Diverticulosis of large intestine without perforation or abscess without bleeding; K29.71 Gastritis, unspecified, with bleeding; I12.9 Hypertensive chronic kidney disease with stage 1 through stage 4 chronic kidney disease, or unspecified chronic kidney disease; K20.90 Esophagitis, unspecified without bleeding; N18.30 Chronic kidney disease, stage 3 unspecified; D63.1 Anemia in chronic kidney disease; E66.01 Morbid (severe) obesity due to excess calories; Z86.711 Personal history of pulmonary embolism; Z87.891 Personal history of nicotine dependence; Z88.1 Allergy status to other antibiotic agents; Z88.5 Allergy status to narcotic agent; Z79.01 Long term (current) use of anticoagulants; Z79.899 Other long term (current) drug therapy
CPT/HCPCS: 36415; 36430; 71046; 74176; 80048; 84484; 85025; 85027; 85610; 85730; 86850; 86900; 86901; 86923; 87635; 88305; 88342; 93005; 96374; 99285; J2405; J3010; P9016

== ENCOUNTER 2022-02-24 08:53 | Outpatient (REF) | payer MEDICARE, SELFPAY ==
[2022-02-24 09:14] LABS: MANUAL DIFF FLAG NO
[2022-02-24 10:01] LABS: Basophils Absolute Auto 0.1 X10*3/uL (0.0-0.2); Basophils Percent Auto 0.5 % (0-2); Eosinophils Absolute Auto 0.4 X10*3/uL (0.0-0.4); Eosinophils Percent Auto 2.9 % (0-4); Hematocrit 36.7 % (37.0-47.0); Hemoglobin 11.2 g/dl (12.0-16.0); Imm Gran Abs Auto 0.24 X10*3/uL (0.00-0.03); Imm Gran Pct Auto 1.9 % (0.0-0.4); Immature Retic Fraction 26.1 % (3.0-15.9); Lymphocytes Absolute Auto 1.7 X10*3/uL (1.2-4.9); Lymphocytes Percent Auto 13.8 % (20-40); Mean Corpuscular HGB Conc 30.5 g/dl (31.0-35.0); Mean Corpuscular Hemoglobin 28.6 pg (27.0-33.0); Mean Corpuscular Volume 93.9 fL (80.0-98.0); Mean Platelet Volume 11.4 fL (9.4-12.3); Monocytes Absolute Auto 1.2 X10*3/uL (0.1-1.2); Monocytes Percent Auto 9.8 % (2-11); Neutrophils Absolute Auto 8.9 x10*3/uL (2.0-8.3); Neutrophils Percent Auto 71.1 % (45-73); Platelet Count 464 X10*3/uL (160-400); Red Blood Count 3.91 X10*6/uL (4.20-5.50); Red Cell Distribution Width 18.1 % (11.0-16.0); Retic HGB Equivalent 35.7 pg (30.0-35.0); Reticulocyte Percent 2.3 % (0.5-1.8); Reticulocytes Absolute 0.092 X10*6/uL (0.026-0.095); White Blood Count 12.5 X10*3/uL (4.8-10.8)
[2022-02-24 10:12] LABS: Estimated Average Glucose 103 mg/dL; Hemoglobin A1c % 5.2 %
[2022-02-24 10:33] LABS: Alanine Aminotransferase 20 U/L (0-31); Albumin Level 4.2 g/dL (3.5-5.0); Alkaline Phosphatase 99 U/L (39-117); Anion Gap 18 (12-20); Aspartate Amino Transferase 19 U/L (5-31); Bilirubin Total 0.4 mg/dL (0.0-1.0); Blood Urea Nitrogen 39 mg/dL (9-16); Calcium 10.6 mg/dL (8.4-10.2); Carbon Dioxide 24 mmol/L (22-29); Chloride 105 mmol/L (96-108); Cholesterol 213 mg/dL; Estimated Glomerular Filt Rate 31; Glucose Fasting 109 mg/dL (60-99); HDL Cholesterol 32 mg/dL; Iron 95 mcg/dL (30-160); LDL Cholesterol Calculated 115 mg/dl; Percent Iron Saturation 24 % (15-50); Potassium 5.1 mmol/L (3.3-5.1); Sodium 142 mmol/L (135-145); Total Iron Binding Capacity 394 mcg/dL (228-428); Total Protein 6.7 g/dL (6.5-8.0); Triglycerides 334 mg/dL; Unsaturated Iron Binding 299 ug/dL
[2022-02-24 10:50] LABS: TSH reflex Free T4 2.48 uIU/mL (0.32-4.0); Vitamin D 25-OH Total 76.5 ng/mL (>30)
[2022-02-24 11:08] LABS: Appearance Urine Clear; Color Urine Yellow; Glucose Urine UA Negative (Negative); Leukocyte Esterase Urine Negative (Negative); Nitrite Urine Negative (Negative); PH 5.5 (5.0-8.0); Urine Blood Negative (Negative); Urine Ketones Trace mg/dL (Negative); Urine Protein Negative (Neg-Trace)
[2022-02-26 17:47] LABS: Erythropoietin (EPO) 19.3 mIU/mL (2.6-18.5)
== END 2022-02-24 08:54 | disposition home or self-care (01) ==
LOC: HO.LAB 08:53
PROVIDERS: PCP Internal Medicine; Visit Provider Internal Medicine
DX: I10 Essential (primary) hypertension (principal); R73.01 Impaired fasting glucose; D50.9 Iron deficiency anemia, unspecified; E55.9 Vitamin D deficiency, unspecified; E78.00 Pure hypercholesterolemia, unspecified
CPT/HCPCS: 36415; 80053; 80061; 81003; 82306; 82668; 83036; 83540; 84443; 85025; 85045

== ENCOUNTER 2022-09-17 13:57 | Outpatient (REF) | payer MEDICARE, SELFPAY ==
[2022-09-17 14:20] LABS: MANUAL DIFF FLAG NO
[2022-09-17 15:23] LABS: Basophils Absolute Auto 0.1 X10*3/uL (0.0-0.2); Basophils Percent Auto 0.4 % (0-2); Eosinophils Absolute Auto 0.3 X10*3/uL (0.0-0.4); Eosinophils Percent Auto 2.8 % (0-4); Hematocrit 43.7 % (37.0-47.0); Imm Gran Abs Auto 0.18 X10*3/uL (0.00-0.03); Imm Gran Pct Auto 1.5 % (0.0-0.4); Lymphocytes Absolute Auto 1.6 X10*3/uL (1.2-4.9); Lymphocytes Percent Auto 13.3 % (20-40); Mean Corpuscular Volume 103.1 fL (80.0-98.0); Mean Platelet Volume 11.4 fL (9.4-12.3); Monocytes Absolute Auto 1.2 X10*3/uL (0.1-1.2); Monocytes Percent Auto 10.4 % (2-11); Neutrophils Absolute Auto 8.6 x10*3/uL (2.0-8.3); Neutrophils Percent Auto 71.6 % (45-73); Platelet Count 382 X10*3/uL (160-400); Red Blood Count 4.24 X10*6/uL (4.20-5.50); Red Cell Distribution Width 13.7 % (11.0-16.0)
[2022-09-17 16:01] LABS: Alanine Aminotransferase 24 U/L (0-31); Albumin Level 4.2 g/dL (3.5-5.0); Alkaline Phosphatase 105 U/L (39-117); Anion Gap 19 (12-20); Aspartate Amino Transferase 18 U/L (5-31); Bilirubin Total 0.6 mg/dL (0.0-1.0); Blood Urea Nitrogen 29 mg/dL (9-16); Calcium 11.1 mg/dL (8.4-10.2); Carbon Dioxide 24 mmol/L (22-29); Chloride 104 mmol/L (96-108); Cholesterol 217 mg/dL; Estimated Glomerular Filt Rate 37; Glucose Fasting 97 mg/dL (60-99); HDL Cholesterol 36 mg/dL; LDL Cholesterol Calculated 124 mg/dl; Sodium 142 mmol/L (135-145); Total Protein 6.5 g/dL (6.5-8.0); Triglycerides 285 mg/dL
[2022-09-17 16:21] LABS: TSH reflex Free T4 2.16 uIU/mL (0.32-4.0)
== END 2022-09-17 13:58 | disposition home or self-care (01) ==
LOC: HO.LAB 13:57
PROVIDERS: PCP Internal Medicine; Visit Provider Internal Medicine
DX: I10 Essential (primary) hypertension (principal); E78.00 Pure hypercholesterolemia, unspecified
CPT/HCPCS: 36415; 80053; 80061; 84443; 85025

== ENCOUNTER 2022-09-17 17:04 | Outpatient (AMB) | payer MEDICARE, SELFPAY ==
[2022-09-17 17:10] VITALS: BP 132/80; BMI 43.4
--- NOTE | 2022-09-17 17:10 | MHC.PC.OV ---
Vital Signs 09/17/22 17:10 Height 5 ft 5 in Weight 261 lb 6 oz BMI 43.4 BP 132/80 Blood Pressure Location Lt brachial Position Sitting Pulse Source Pulse Oximeter Temp Source Skin Oxygen Delivery Method Room Air Intake Visit Reasons: Physical exam Intake Note: Pt is here for physical exam. 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 Required: No Accompanied by: Grand Child Allergies levofloxacin [From LEVAQUIN] Allergy (Severe, Verified 04/08/23 16:23) angioedema metronidazole [From FLAGYL] Allergy (Severe, Verified 04/08/23 16:23) angioedema codeine [CODEINE] Allergy (Intermediate, Verified 04/08/23 16:23) RASH, hives codeine Allergy (Unknown, Uncoded 04/08/23 16:23) hives Medication List - Last Reconciled 04/09/23 by Remigio Hooks MD albuterol sulfate 90 mcg/actuation (Ventolin HFA) 1 inh inhalation QID PRN apixaban (Eliquis) 5 mg PO BID atorvastatin 40 mg PO DAILY carisoprodol 250 mg PO BID PRN hydrochlorothiazide 50 mg PO DAILY inhalational spacing device (Aerochamber MV spacer) As directed lisinopril 40 mg PO DAILY 90 days omeprazole 40 mg PO DAILY 90 days ondansetron HCl 4 mg PO Q8H PRN 10 days sertraline 50 mg PO DAILY Tobacco use date assessed: 09/17/22 Fall risk assessment: No Falls in past year Last assessed Fall Risk: 09/17/22 HPI Physical exam HPI Details Patient comes in today for her annual physical examination States that she feels okay She denies any headaches or dizziness Denies any chest pains, no shortness of breath No nausea / vomiting, no abdominal pain No change in bowel habits noted Denies any acute urinary symptoms Patient states that she needs a couple of her Rx refill Patient had her follow-up labs done earlier today - to discuss her results She had her last mammogram done in November of 2020 Her colonoscopy was last done by Dr. 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 pap smear, based on her age [facility] Medical History Anemia Impaired fasting glucose History of pulmonary embolism Breast cancer screening Exertional dyspnea Morbid obesity with BMI of 40.0-44.9, adult Osteopenia Chronic idiopathic urticaria Chronic kidney disease (CKD), stage III (moderate) Pure hypercholesterolemia Benign essential hypertension Skin lesions Surgical History History of back surgery History of appendectomy Family History Father Liver cirrhosis Mother Substance abuse Social History Household Members: Family and Children Housing: House Do you presently have visiting nurse or other home services: No Alcohol intake: never Patient Tobacco Use Status: Former Tobacco user e-Cigarette/Vaping Use: Never Used Second Hand Smoke Exposure: Yes Advance Directives Date on File: 01/24/22 service: No Current occupational status: retired Cognitive needs: Yes (walker) Hearing needs: No Vision needs: Yes (wears glasses) Questionnaire PHQ-9 Over the last 2 weeks, how often have you been bothered by any of the following problems? 1. Little interest or pleasure in doing things: not at all 2. Feeling down, depressed, or hopeless: not at all 3. Trouble falling or staying asleep, or sleeping too much: not at all 4. Feeling tired or having little energy: not at all 5. Poor appetite or overeating: not at all 6. Feeling bad about yourself - or that you are a failure or have let yourself or your family down: not at all 7. Trouble concentrating on things, such as reading the newspaper or watching television: not at all 8. Moving or speaking so slowly that other people could have noticed. Or the opposite - being so fidgety or restless that you have been moving around a lot more than usual: not at all 9. Thoughts that you would be better off or of hurting yourself in some way: not at all Total score: 0 Depression Screening Interpretation: Negative 29821 - PHQ-9 Billing: Yes Source: Developed by Drs. Guzman De Leon, Prem Handy and colleagues, with an educational emelia from [employer]. Thrive Questionnaire Date Thrive assessed: 09/17/22 I am a: Patient What is your living situation today?: I have a steady place to live Within the past 12 months, did the food you bought not last and you didn't have the money to get more?: Never true Within the past 12 months, did you worry whether your food would run out before you got money to buy more?: Never true Do you have trouble paying for medicines?: No Do you have trouble getting transportation to medical appointments?: No Do you have trouble paying your heating and electricity bill?: No Do you have trouble taking care of your child, family member or friend?: No Do you have trouble with day-to-day activities such as bathing, preparing meals, shopping, managing finances, etc.?: No Are you currently unemployed and looking for a job?: No Are you interested in more education?: No Currently or been in a relationship where the following occur: no concerns reported AUDIT C Alcohol Use Questionnaire (AUDIT-C) 1. How often do you have a drink containing alcohol?: Never 3. How often do you have six or more drinks on one occasion?: Never Total Score: 0 Score Reviewed/Action Taken: Yes KARIN-7 AMB Questionnaire KARIN-7 Date KARIN - 7 assessed: 09/17/22 Feeling nervous, anxious, or on edge: 0 = Not at all Not being able to stop or control worryin = Not at all Worrying too much about different things: 0 = Not at all Trouble relaxin = Not at all Being so restless that it is hard to sit still: 0 = Not at all Becoming easily annoyed or irritable: 0 = Not at all Feeling afraid as if something awful might happen: 0 = Not at all Total KARIN-7 score (0-4 normal; 5-9 mild; 10-14 moderate; 15-21 severe): 0 Source: Developed by Drs. Guzman De Leon, Prem Handy and colleagues, with an educational emelia from [employer]. Review of Systems Const Denies chills, Denies fatigue, Denies fever(s), Denies headache(s) and Denies malaise Eyes Denies blurry vision, Denies change in vision, Denies irritation and Denies itchy eyes ENT Denies dysphagia, Denies dizziness, Denies otalgia, Denies headache(s), Denies nasal congestion, Denies neck pain, Denies odynophagia, Denies sinus pain and Denies sore throat Card Denies chest pain, Denies rapid heart rate, Denies irregular heart rhythm, Denies palpitations and Denies dyspnea Resp Denies chest congestion, Denies cough, Denies dyspnea and Denies wheezing GI Denies abdominal pain, Denies bloating, Denies constipation, Denies dysphagia, Denies heartburn, Denies diarrhea, Denies nausea, Denies odynophagia and Denies vomiting Denies hematuria, Denies urinary frequency, Denies dysuria, Denies urinary incontinence and Denies urinary urgency Musc Denies back pain, Denies arthralgias, Denies joint swelling, Denies muscle weakness and Denies neck pain Skin/Breast Denies breast pain, Denies breast mass, Denies change in pigmentation, Denies lesions, Denies rash and Denies unusual bruising Neuro Denies dizziness, Denies headache(s) and Denies paresthesias Psych Denies anxiety and Denies depression Endo Denies fatigue and Denies palpitations Matthew/Lymph Denies easy bruising Aller/Immun Denies itchy eyes and Denies wheezing Physical exam (Primary Care) Vital Signs: Last Vital Signs BP 132/80 09/17/22 17:10 Oxygen Delivery Method Room Air 09/17/22 17:10 BMI result Body Mass Index 43.4 Tobacco/Smoking Status: Tobacco use Status Tobacco use date assessed 09/17/22 09/17/22 17:12 Patient Tobacco Use Status Former Tobacco user 09/17/22 17:12 e-Cigarette/Vaping Use Never Used 09/17/22 17:12 PHQ-9: PHQ-9 Score PHQ-9: Total score 0 09/17/22 17:37 Depression Screening Interpretation: Negative Thrive Assessment: Date of Thrive Assessment Date Thrive assessed 09/17/22 09/17/22 17:12 Currently or been in a relationship where the following occur: no concerns reported Const General: no acute distress, alert and awake Orientation/consciousness: patient oriented x3 HENRI Head: Yes normocephalic and Yes atraumatic Ears: external ears normal, TM's normal bilaterally and EAC's normal General nose exam: No nasal discharge present Face and sinus: Yes normal facial exam and Yes sinuses nontender Teeth and gingiva: dentition normal Throat: Yes posterior oropharynx normal and Yes tonsils normal (no TP congestion) Eyes Eyelids: Yes eyelids normal Conjunctivae: conjunctivae normal Pupils: Equal, round and reactive pupils present EOM: EOMs intact bilaterally Neck Neck: Yes no lymphadenopathy and Yes supple Thyroid: Thyroid normal Resp Auscultation: clear to auscultation bilaterally, no rales and no wheezes Cardio Rate: regular rate Rhythm: regular rhythm Heart sounds: no murmurs GI Palpation (GI): Soft to palpation, nontender and No hepatosplenomegaly present Auscultation: normal bowel sounds General: Yes no CVA tenderness Back/Spine/Pelvis Back: no CVA tenderness Thoracic/Lumbar Spine: thoracic and lumbar spine normal to inspection Skin Lesions: no lesions Rashes: no rashes Neuro General: patient oriented x3, moves all extremities, no focal motor deficits and CN's II-XI intact bilaterally Cranial nerves: Yes Equal, round and reactive pupils present Cognition (Neuro): normal cognition Gait exam (Neuro): Normal gait present Extrem General: Yes no clubbing, cyanosis or edema Results Reviewed Results Reviewed: Laboratory Tests 09/17/22 09/17/22 14:18 14:18 WBC 12.0 H Hgb 14.0 D Hct 43.7 Plt Count 382 Sodium 142 Potassium 5.0 Creatinine 1.39 Estimated GFR 37 Fasting Glucose 97 Calcium 11.1 H AST 18 ALT 24 Triglycerides 285 Cholesterol 217 LDL Cholesterol, Calc 124 HDL Cholesterol 36 TSH 2.16 Assessment and Plan Assessment & Plan (1) Annual physical exam: Code(s): Z00.00 - Encounter for general adult medical examination without abnormal findings Plan: Results of her labs done earlier this morning reviewed and discussed with patient States that she no longer has to keep up with 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 and Pap smear as well as her annual mammogram due to her age (2) Benign essential hypertension: Code(s): I10 - Essential (primary) hypertension Plan: Reinforced low sodium diet - goal is systolic BP of at least 140 mm or less Continue Lisinopril 40 mg QD and HCTZ 50 mg QD (3) Chronic kidney disease (CKD), stage III (moderate): Code(s): N18.30 - Chronic kidney disease, stage 3 unspecified Qualifiers: Chronic kidney disease stage 3 subtype: stage 3a (GFR 45-59) Qualified Code(s): N18.31 - Chronic kidney disease, stage 3a Plan: Patient's renal function appeared stable on her recent labs done earlier today Will continue to monitor her GFR and renal function closely (4) Pure hypercholesterolemia: Code(s): E78.00 - Pure hypercholesterolemia, unspecified Plan: Patient is advised that her cholesterol numbers are within normal range but cautioned that her LDL cholesterol has increased slightly from last year Reinforced low cholesterol diet Continue Atorvastatin 40 mg QD Will recheck her labs and fasting lipids in 4 months for follow up (5) Impaired fasting glucose: Code(s): R73.01 - Impaired fasting glucose Plan: HgbA1c was normal at 5.2% when last checked last year in January 2022 FBS was normal at 97 mg/dl on her labs done earlier today Reinforced low calorie diet/exercise as tolerated (6) History of pulmonary embolism: Code(s): Z86.711 - Personal history of pulmonary embolism Plan: Continue Eliquis (Apixaban) 5 mg BID (7) GI bleeding: Code(s): K92.2 - Gastrointestinal hemorrhage, unspecified Qualifiers: GI bleed type/associated pathology: gastritis Gastritis type: chronic gastritis Qualified Code(s): K29.51 - Unspecified chronic gastritis with bleeding Plan: Resolved EGD done in December 2021 revealed (+) grade III ulcers in the prepyloric area and a bleeding ulcer in the lesser curvature of the stomach that was clipped - was a Dieulafoy lesion Colonoscopy was limited to the descending colon due to severe diverticulosis and narrow lumen; advised then that CT colonography or enteroscopy will be considered later on Continue Omeprazole 40 mg QD (Rx refilled) Follow up with GI as scheduled or as needed (8) Reactive airway disease: Code(s): J45.909 - Unspecified asthma, uncomplicated Qualifiers: Asthma severity: unspecified severity Asthma persistence: unspecified Asthma complication type: uncomplicated Qualified Code(s): J45.909 - Unspecified asthma, uncomplicated Plan: Continue Albuterol HFA 1 to 2 inhalations Q 6 hours PRN Will consider sending her for PFTs at some point for further evaluation of her breathing (9) Anemia: Code(s): D64.9 - Anemia, unspecified Qualifiers: Anemia type: unspecified type Qualified Code(s): D64.9 - Anemia, unspecified Plan: Improved; H/H were normal at 14.0/43.7 on her labs done this morning Will continue to monitor her CBC regularly (10) Chronic idiopathic urticaria: Code(s): L50.1 - Idiopathic urticaria Plan: Has been seen and worked up by trombone slide assembler (Dr. Kidd) in the past Follow up with dermatology as scheduled (11) Constipation: Code(s): K59.00 - Constipation, unspecified Qualifiers: Constipation type: unspecified constipation type Qualified Code(s): K59.00 - Constipation, unspecified Plan: Encouraged increased oral fluids and dietary fiber Continue Miralax 17 gm QD to help regulate her bowel movements better; can also take OTC stool softeners PRN additionally (12) Osteopenia: Code(s): M85.80 - Other specified disorders of bone density and structure, unspecified site Qualifiers: Osteopenia location: unspecified Qualified Code(s): M85.80 - Other specified disorders of bone density and structure, unspecified site Plan: Repeat BMD last done on 06/30/2018 - was due for repeat last year but this was held up due to her GI bleeding issues She is again encouraged again to continue to stay active and exercise regularly (13) Anxiety: Code(s): F41.9 - Anxiety disorder, unspecified Plan: Continue Sertraline 50 mg QD - Rx refilled (14) Morbid obesity with BMI of 40.0-44.9, adult: Code(s): E66.01 - Morbid (severe) obesity due to excess calories; Z68.41 - Body mass index [BMI] 40.0-44.9, adult Plan: Reinforced diet' exercise and weight loss options are limited given patient's advancing age and comorbidities (15) Colon cancer screening: Code(s): Z12.11 - Encounter for screening for malignant neoplasm of colon Plan: Will refer her to GI for consideration for repeat colonoscopy Plan Follow up in 4 months Orders: Orders Complete Blood Count Auto Diff 4 Months I10 - Essential (primary) hypertension Comprehensive [place]. Panel Fast 4 Months E78.00 - Pure hypercholesterolemia, unspecified Lipid Panel 4 Months E78.00 - Pure hypercholesterolemia, unspecified TSH reflex Free T4 4 Months E78.00 - Pure hypercholesterolemia, unspecified UA CC w/rflx Micro + Cult 4 Months R30.0 - Dysuria Vitamin D 25-OH Total 4 Months E55.9 - Vitamin D deficiency, unspecified Calcium, Ionized 4 Months E83.52 - Hypercalcemia PTHI 4 Months E83.52 - Hypercalcemia Referrals Gastroenterology Referral Z12.11 - Encounter for screening for malignant neoplasm of colon Medications: Changed From omeprazole 40 mg PO BID@0630,1630 30 days 60 caps 0RF To omeprazole 40 mg PO DAILY 90 caps 1RF 90 days From sertraline 50 mg PO DAILY 30 days 30 tabs 2RF To sertraline 50 mg PO DAILY 90 tabs 1RF 90 days Coding Level of Care Code Est Pt Prev Care >65y([id number]) Diagnoses Annual physical exam Z00.00 Benign essential hypertension I10 Stage 3a chronic kidney disease N18.31 Chronic kidney disease stage 3 subtype: stage 3a (GFR 45-59) Pure hypercholesterolemia E78.00 Impaired fasting glucose R73.01 History of pulmonary embolism Z86.711 Gastrointestinal hemorrhage associated with chronic gastritis K29.51 GI bleed type/associated pathology: gastritis Gastritis type: chronic gastritis Reactive airway disease without complication, unspecified asthma severity, unspecified whether persistent J45.909 Asthma severity: unspecified severity Asthma persistence: unspecified Asthma complication type: uncomplicated Anemia, unspecified type D64.9 Anemia type: unspecified type Chronic idiopathic urticaria L50.1 Constipation, unspecified constipation type K59.00 Constipation type: unspecified constipation type Osteopenia, unspecified location M85.80 Osteopenia location: unspecified Anxiety F41.9 Morbid obesity with BMI of 40.0-44.9, adult E66.01; Z68.41 Colon cancer screening Z12.11
== END 2022-09-17 18:19 | disposition home or self-care (01) ==
LOC: HO.HMGH 17:04
PROVIDERS: PCP Internal Medicine; Visit Provider Internal Medicine
DX: Z00.00 Encounter for general adult medical examination without abnormal findings (principal); I12.9 Hypertensive chronic kidney disease with stage 1 through stage 4 chronic kidney disease, or unspecified chronic kidney disease; N18.31 Chronic kidney disease, stage 3a; Z68.41 Body mass index [BMI] 40.0-44.9, adult; E66.01 Morbid (severe) obesity due to excess calories; E78.00 Pure hypercholesterolemia, unspecified; R73.01 Impaired fasting glucose; Z86.711 Personal history of pulmonary embolism; K29.51 Unspecified chronic gastritis with bleeding; J45.909 Unspecified asthma, uncomplicated; D64.9 Anemia, unspecified; L50.1 Idiopathic urticaria
CPT/HCPCS: 99397

== ENCOUNTER 2022-09-24 14:34 | Outpatient (REF) | payer MEDICARE, SELFPAY ==
[2022-09-24 16:27] LABS: Phosphorus 3.1 mg/dL (2.7-4.5)
[2022-09-24 16:57] LABS: Ferritin 48 ng/mL (10-250); Folate 17.9 ng/mL (> or = 4.0); Vitamin B12 > 2000 pg/mL (200-900); Vitamin D 25-OH Total 81.2 ng/mL (>30)
[2022-09-26 16:04] LABS: Calcium, Ionized 5.6 mg/dL (4.7-5.5)
[2022-10-02 16:18] LABS: Parathyroid Hormone Related Pr 18 pg/mL (11-20)
== END 2022-09-24 14:35 | disposition home or self-care (01) ==
LOC: HO.LAB 14:34
PROVIDERS: PCP Internal Medicine; Visit Provider Internal Medicine
DX: D64.9 Anemia, unspecified (principal); E83.52 Hypercalcemia; Z79.01 Long term (current) use of anticoagulants; Z87.11 Personal history of peptic ulcer disease; Z86.010 Personal history of colon polyps
CPT/HCPCS: 36415; 82306; 82330; 82607; 82728; 82746; 83519; 84100; 99212

== ENCOUNTER 2023-04-08 15:53 | Outpatient (AMB) | payer MEDICARE, SELFPAY ==
[2023-04-08 16:00] VITALS: BP 142/90; PULSE 106; O2SAT 98; BMI 44.1
--- NOTE | 2023-04-08 16:00 | MHC.PC.OV ---
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 Required: No Accompanied by: Self / Same As Patient Allergies levofloxacin [From LEVAQUIN] Allergy (Severe, Verified 04/08/23 16:23) angioedema metronidazole [From FLAGYL] Allergy (Severe, Verified 04/08/23 16:23) angioedema codeine [CODEINE] Allergy (Intermediate, Verified 04/08/23 16:23) RASH, hives codeine Allergy (Unknown, Uncoded 04/08/23 16:23) hives Medication List - Last Reconciled 04/08/23 by Remigio Hooks MD albuterol sulfate 90 mcg/actuation (Ventolin HFA) 1 inh inhalation QID PRN apixaban (Eliquis) 5 mg PO BID atorvastatin 40 mg PO DAILY carisoprodol 250 mg PO BID PRN hydrochlorothiazide 50 mg PO DAILY inhalational spacing device (Aerochamber MV spacer) As directed lisinopril 40 mg PO DAILY omeprazole 40 mg PO DAILY 90 days ondansetron HCl 4 mg PO Q8H PRN 10 days sertraline 50 mg PO DAILY Tobacco use date assessed: 04/08/23 Fall risk assessment: No Falls in past year Last assessed Fall Risk: 04/08/23 Dental Screening Dental Screen Date: 04/08/23 Did you have a dental visit in the last 12 months?: Yes Did you have a dental problem in the last 6 months where you did not have access to dental care?: No Was dental information given to patient?: Patient has dentist HPI 4 month f/u HPI Details Patient comes in today for her follow up visit States that she has been out of her Lisinopril Rx for almost 2 weeks now and her pharmacy keeps telling her that her refill is in process every time she calls them for her refill States that she feels okay so far and has not had any headaches or dizziness lately She denies any chest pains, no SOB No nausea/vomiting, no abdominal pain No change in bowel habits noted States that she needs her Omeprazole and Albuterol inhaler Rx refilled as well Has had no follow up labs done recently Patient was also previously scheduled to undergo a repeat colonoscopy with Dr. Kevin in November 2022 but she ended up canceling her procedure as she did not feel that it is something she still needed to do at her age and declined to reschedule [facility] Medical History Anemia Impaired fasting glucose History of pulmonary embolism Breast cancer screening Exertional dyspnea Morbid obesity with BMI of 40.0-44.9, adult Osteopenia Chronic idiopathic urticaria Chronic kidney disease (CKD), stage III (moderate) Pure hypercholesterolemia Benign essential hypertension Skin lesions Surgical History History of back surgery History of appendectomy Family History Father Liver cirrhosis Mother Substance abuse Social History Household Members: Family and Children Housing: House Do you presently have visiting nurse or other home services: No Alcohol intake: never Patient Tobacco Use Status: Former Tobacco user e-Cigarette/Vaping Use: Never Used Second Hand Smoke Exposure: Yes Advance Directives Date on File: 01/24/22 service: No Current occupational status: retired Cognitive needs: Yes (walker) Hearing needs: No Vision needs: Yes (wears glasses) Questionnaire PHQ-9 Over the last 2 weeks, how often have you been bothered by any of the following problems? 1. Little interest or pleasure in doing things: not at all 2. Feeling down, depressed, or hopeless: not at all 3. Trouble falling or staying asleep, or sleeping too much: not at all 4. Feeling tired or having little energy: not at all 5. Poor appetite or overeating: not at all 6. Feeling bad about yourself - or that you are a failure or have let yourself or your family down: not at all 7. Trouble concentrating on things, such as reading the newspaper or watching television: not at all 8. Moving or speaking so slowly that other people could have noticed. Or the opposite - being so fidgety or restless that you have been moving around a lot more than usual: not at all 9. Thoughts that you would be better off or of hurting yourself in some way: not at all Total score: 0 Depression Screening Interpretation: Negative Depression Screening Done: Yes [id number] - PHQ-9 Billing: Yes Source: Developed by Drs. Guzman De Leon, Zita Lima, Prem Carrera and colleagues, with an educational emelia from [employer] Thrive Questionnaire Date Thrive assessed: 04/08/23 I am a: Patient What is your living situation today?: I have a steady place to live Within the past 12 months, did the food you bought not last and you didn't have the money to get more?: Never true Within the past 12 months, did you worry whether your food would run out before you got money to buy more?: Never true Do you have trouble paying for medicines?: No Do you have trouble getting transportation to medical appointments?: No Do you have trouble paying your heating and electricity bill?: No Do you have trouble taking care of your child, family member or friend?: No Do you have trouble with day-to-day activities such as bathing, preparing meals, shopping, managing finances, etc.?: No Are you currently unemployed and looking for a job?: No Are you interested in more education?: No Please select the resources that you would like help with: None Currently or been in a relationship where the following occur: no concerns reported AUDIT C Alcohol Use Questionnaire (AUDIT-C) 1. How often do you have a drink containing alcohol?: Never 3. How often do you have six or more drinks on one occasion?: Never Total Score: 0 Score Reviewed/Action Taken: Yes KARIN-7 AMB Questionnaire KARIN-7 Date KARIN - 7 assessed: 04/08/23 Feeling nervous, anxious, or on edge: 0 = Not at all Not being able to stop or control worryin = Not at all Worrying too much about different things: 0 = Not at all Trouble relaxin = Not at all Being so restless that it is hard to sit still: 0 = Not at all Becoming easily annoyed or irritable: 0 = Not at all Feeling afraid as if something awful might happen: 0 = Not at all Total KARIN-7 score (0-4 normal; 5-9 mild; 10-14 moderate; 15-21 severe): 0 Source: Developed by Drs. Guzman De Leon, Zita Lima, Prem Carrera and colleagues, with an educational emelia from [employer]. Review of Systems Const Denies chills, Reports difficulty sleeping (at times), Denies fatigue, Denies fever(s) and Denies headache(s) ENT Denies dysphagia, Denies dizziness, Denies otalgia, Denies headache(s), Denies neck pain, Denies odynophagia and Denies sore throat Card Denies chest pain, Denies palpitations and Denies dyspnea Resp Denies chest congestion, Denies cough and Denies dyspnea GI Denies abdominal pain, Reports constipation (on and off), Denies dysphagia, Denies heartburn, Denies diarrhea, Denies nausea, Denies odynophagia and Denies vomiting Denies difficulty voiding, Denies nocturia and Denies dysuria Musc Denies neck pain Skin/Breast Denies rash Neuro Denies dizziness and Denies headache(s) Psych Denies anxiety (better controlled) Endo Denies fatigue and Denies palpitations Physical exam (Primary Care) Vital Signs: Last Vital Signs Pulse 106 H 04/08/23 16:00 BP 142/90 H 04/08/23 16:00 Pulse Ox 98 04/08/23 16:00 Oxygen Delivery Method Room Air 04/08/23 16:00 BMI result Body Mass Index 44.1 Tobacco/Smoking Status: Tobacco use Status Tobacco use date assessed 04/08/23 04/08/23 16:11 Patient Tobacco Use Status Former Tobacco user 04/08/23 16:11 e-Cigarette/Vaping Use Never Used 04/08/23 16:11 PHQ-9: PHQ-9 Score PHQ-9: Total score 0 04/08/23 16:11 Depression Screening Interpretation: Negative Thrive Assessment: Date of Thrive Assessment Date Thrive assessed 04/08/23 04/08/23 16:11 Currently or been in a relationship where the following occur: no concerns reported Const General: no acute distress and alert HENMT Ears: TM's normal bilaterally and EAC's normal Throat: Yes posterior oropharynx normal and Yes tonsils normal (no TP congestion) Neck Neck: Yes no lymphadenopathy and Yes supple Resp Auscultation: clear to auscultation bilaterally, no rales and no wheezes Cardio Rate: regular rate Rhythm: regular rhythm Heart sounds: no murmurs GI Palpation (GI): Soft to palpation and nontender Auscultation: normal bowel sounds General: Yes no CVA tenderness Back/Spine/Pelvis Back: no CVA tenderness Skin Rashes: no rashes Extrem General: Yes no clubbing, cyanosis or edema Assessment and Plan Assessment & Plan (1) Benign essential hypertension: Code(s): I10 - Essential (primary) hypertension Plan: Reinforced low sodium diet - goal is systolic BP of at least 140 mm or less Her BP is understandably higher than recommended today as she has been reportedly out of her Lisinopril for almost 2 weeks now Continue Lisinopril 40 mg QD (Rx refilled) and HCTZ 50 mg QD (2) Chronic kidney disease (CKD), stage III (moderate): Code(s): N18.30 - Chronic kidney disease, stage 3 unspecified Qualifiers: Chronic kidney disease stage 3 subtype: stage 3a (GFR 45-59) Qualified Code(s): N18.31 - Chronic kidney disease, stage 3a Plan: Patient's renal function appeared stable on her most recent labs done back in August 2022 Will continue to monitor her GFR and renal function closely (3) Pure hypercholesterolemia: Code(s): E78.00 - Pure hypercholesterolemia, unspecified Plan: She has not had any follow up labs done recently - labs were last done in August 2022 Reinforced low cholesterol diet Continue Atorvastatin 40 mg QD Will recheck her labs and fasting lipids in 4 months for follow up (4) Impaired fasting glucose: Code(s): R73.01 - Impaired fasting glucose Plan: HgbA1c was normal at 5.2% when last checked a year ago in January 2022 Reinforced low calorie diet/exercise as tolerated (5) History of pulmonary embolism: Code(s): Z86.711 - Personal history of pulmonary embolism Plan: Continue Eliquis (Apixaban) 5 mg BID (6) GI bleeding: Code(s): K92.2 - Gastrointestinal hemorrhage, unspecified Qualifiers: GI bleed type/associated pathology: gastritis Gastritis type: chronic gastritis Qualified Code(s): K29.51 - Unspecified chronic gastritis with bleeding Plan: Resolved EGD done in December 2021 revealed (+) grade III ulcers in the prepyloric area and a bleeding ulcer in the lesser curvature of the stomach that was clipped - was a Dieulafoy lesion Colonoscopy was limited to the descending colon due to severe diverticulosis and narrow lumen; advised then that CT colonography or enteroscopy will be considered later on She was scheduled to undergo repeat colonoscopy in November 2022 but patient ended up cancelling the procedure as she did not feel that she needs to have it done again at this time Follow up with GI as scheduled or as needed (7) Reactive airway disease: Code(s): J45.909 - Unspecified asthma, uncomplicated Qualifiers: Asthma severity: unspecified severity Asthma complication type: uncomplicated Asthma persistence: unspecified Qualified Code(s): J45.909 - Unspecified asthma, uncomplicated Plan: Continue Albuterol HFA 1 to 2 inhalations Q 6 hours PRN - Rx refilled Reminded that she should get a PFT done at some point to help clarify her breathing issues further (8) Anemia: Code(s): D64.9 - Anemia, unspecified Qualifiers: Anemia type: unspecified type Qualified Code(s): D64.9 - Anemia, unspecified Plan: Improved; H/H were normal at 14.0/43.7 when last checked in August 2021 Will continue to monitor her CBC regularly (9) Chronic idiopathic urticaria: Code(s): L50.1 - Idiopathic urticaria Plan: Has been seen and worked up by population health coach (Dr. Kidd) in the past Follow up with dermatology as scheduled (10) Constipation: Code(s): K59.00 - Constipation, unspecified Qualifiers: Constipation type: unspecified constipation type Qualified Code(s): K59.00 - Constipation, unspecified Plan: Encouraged increased oral fluids and dietary fiber She is again reminded that she can continue taking OTC stool softeners as needed and Miralax 17 gm QD to help regulate her bowel movements better (11) Osteopenia: Code(s): M85.80 - Other specified disorders of bone density and structure, unspecified site Qualifiers: Osteopenia location: unspecified Qualified Code(s): M85.80 - Other specified disorders of bone density and structure, unspecified site Plan: Repeat BMD last done on 06/30/2018 - was due for repeat last year but this was held up due to her GI bleeding issues Have recommended to get this repeated DEXTER - ordered She is again encouraged again to continue to stay active and exercise regularly (12) Anxiety: Code(s): F41.9 - Anxiety disorder, unspecified Plan: Continue Sertraline 50 mg QD - states that her anxiety has been doing well on her Rx (13) Morbid obesity with BMI of 40.0-44.9, adult: Code(s): E66.01 - Morbid (severe) obesity due to excess calories; Z68.41 - Body mass index [BMI] 40.0-44.9, adult Plan: Reinforced diet' exercise and weight loss options are limited given patient's advancing age and comorbidities Plan Follow up in 4 months Orders: Orders Complete Blood Count Auto Diff 4 Months I10 - Essential (primary) hypertension Lipid Panel 4 Months E78.00 - Pure hypercholesterolemia, unspecified Hemoglobin A1c 4 Months R73.01 - Impaired fasting glucose XR DEXA axial skeleton Today M85.80 - Other specified disorders of bone density and structure, unspecified site, Z78.0 - Asymptomatic menopausal state Comprehensive [place]. Panel Fast 4 Months E78.00 - Pure hypercholesterolemia, unspecified TSH reflex Free T4 4 Months E78.00 - Pure hypercholesterolemia, unspecified UA CC w/rflx Micro + Cult 4 Months R30.0 - Dysuria Vitamin D 25-OH Total 4 Months E55.9 - Vitamin D deficiency, unspecified Medications: Changed From lisinopril 40 mg PO DAILY 90 tabs 1RF To lisinopril 40 mg PO DAILY 90 days 90 tabs 1RF Refilled omeprazole 40 mg PO DAILY 90 days 90 caps 1RF albuterol sulfate 90 mcg/actuation (Ventolin HFA) 1 inh inhalation QID PRN 8.5 grams 1RF shortness of breath or wheezing Coding Level of Care Code Est Pt Level 4 (64714) Diagnoses Benign essential hypertension I10 Stage 3a chronic kidney disease N18.31 Chronic kidney disease stage 3 subtype: stage 3a (GFR 45-59) Pure hypercholesterolemia E78.00 Impaired fasting glucose R73.01 History of pulmonary embolism Z86.711 Gastrointestinal hemorrhage associated with chronic gastritis K29.51 GI bleed type/associated pathology: gastritis Gastritis type: chronic gastritis Reactive airway disease without complication, unspecified asthma severity, unspecified whether persistent J45.909 Asthma severity: unspecified severity Asthma complication type: uncomplicated Asthma persistence: unspecified Anemia, unspecified type D64.9 Anemia type: unspecified type Chronic idiopathic urticaria L50.1 Constipation, unspecified constipation type K59.00 Constipation type: unspecified constipation type Osteopenia, unspecified location M85.80 Osteopenia location: unspecified Anxiety F41.9 Morbid obesity with BMI of 40.0-44.9, adult E66.01; Z68.41
== END 2023-04-08 16:35 | disposition home or self-care (01) ==
PROVIDERS: PCP Internal Medicine; Visit Provider Internal Medicine
DX: I12.9 Hypertensive chronic kidney disease with stage 1 through stage 4 chronic kidney disease, or unspecified chronic kidney disease (principal); N18.31 Chronic kidney disease, stage 3a; J45.909 Unspecified asthma, uncomplicated; M85.80 Other specified disorders of bone density and structure, unspecified site
CPT/HCPCS: 99214

== ENCOUNTER 2023-10-30 18:59 | Emergency (ER) | payer MEDICARE, SELFPAY ==
[2023-10-30] VITALS (22 sets, daily range): BP systolic 0–147; BP diastolic 0–122; PULSE 40–96; RESP 15–31; TEMP 37.1; O2SAT 85; BMI 52.7; BMI 52.6
--- NOTE | ~2023-10-30 | CT_ITS ---
EXAMINATION: CT ABDOMEN AND PELVIS WITH CONTRAST CLINICAL INFORMATION: Sepsis COMPARISON: Previous CT of the abdomen and pelvis December 2021 TECHNIQUE: Multidetector volumetric images were obtained from the superior aspect of the liver through the pubic symphysis following administration 85 mL of Omnipaque 350 intravenous contrast. Sagittal and coronal reformatted images were obtained on the technologist's workstation. Oral contrast: No This CT examination was performed using dose optimization techniques as appropriate, variously including the following: *Automated exposure control *Adjustment of mA and/or kV according to patient size (this includes techniques or standardized protocols for targeted exams where dose is matched to indication/reason for exam; i.e. extremities or head) *Use of iterative reconstruction technique DLP: 1234 mGy-cm FINDINGS: LIVER, GALLBLADDER, AND BILIARY TREE: The liver is low in attenuation questionable for fatty infiltration versus a changes due to timing of contrast. The liver is enlarged. No focal liver lesion. The gallbladder is enlarged. No gallstones are seen. There is no intra or extrahepatic biliary duct dilatation. PANCREAS: Fatty infiltration otherwise unremarkable. SPLEEN: Unremarkable. ADRENAL GLANDS: Unremarkable. KIDNEYS AND URETERS: Multiple right renal stones, largest in the shape of a calyx in the upper pole measuring 1 cm. Mild right hydronephrosis and ureteral dilatation from adjacent 2 and 3 mm stones in the right distal ureter. There is right periureteral fat stranding. The left kidney appears smaller atrophic. BLADDER: Santos catheter in the bladder. The bladder is empty. GASTROINTESTINAL TRACT: Severe diverticulosis of the colon. No evidence of diverticulitis. The small and large bowel are otherwise unremarkable. The appendix is not definitely seen. No inflammatory changes in the right lower quadrant.. ABDOMINAL WALL: No significant hernia is appreciated. LYMPH NODES: Normal. VASCULAR: Unremarkable. PELVIC VISCERA: Unremarkable. 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 There is ankylosis of the L5-S1 disc space. Mild compression fracture/Schmorl's node of the T12 vertebral body. CT/CT abdomen pelvis w IV con IMPRESSION: 1. Mild right hydronephrosis and ureteral dilatation from adjacent 2 and 3 mm stones in the right distal ureter. Multiple right renal stones, largest in the upper pole measuring 1 cm. Atrophic-appearing left kidney. 2. Enlarged fatty liver. Enlarged gallbladder. No gallstones seen. 3. Severe diverticulosis of the colon. No evidence of diverticulitis. Fleischner guidelines were followed.
--- NOTE | ~2023-10-30 | XR_ITS ---
EXAMINATION: XR CHEST CLINICAL INFORMATION: Central line placement COMPARISON: Chest x-ray October 30, 2023, 8:32 PM TECHNIQUE: Frontal portable view of the chest was obtained. 9:21 PM FINDINGS: Tubes and lines: 1. Endotracheal tube catheter 2 cm above the funmi. 2. Right IJ catheter tip at caval atrial junction. No pneumothorax. 3. Enteric catheter passing below diaphragm. Catheter tip below lower margin of film. No pulmonary vascular congestion. No focal consolidation. Slight blunting of the right costophrenic angle consistent with small right pleural effusion. XR/XR chest 1V IMPRESSION: 1. Endotracheal tube catheter 2 cm above the funmi. 2. Right IJ catheter tip at caval atrial junction. No pneumothorax. 3. Enteric catheter passing below diaphragm. Catheter tip below lower margin of film.
--- NOTE | ~2023-10-30 | XR_ITS ---
EXAMINATION: XR CHEST CLINICAL INFORMATION: Post intubation. COMPARISON: Chest radiograph dated 10/30/2023 at 7:41 PM. TECHNIQUE: Frontal view of the chest was obtained. FINDINGS: There is a new endotracheal tube terminating approximately 2.8 cm above the funmi. There is an enteric tube coursing below the diaphragm. The tip is collimated from the [id number]. The cardiac silhouette is unchanged from prior study. There is no consolidation. No large pleural effusion. No pneumothorax. No acute osseous abnormality. XR/XR chest 1V IMPRESSION: The endotracheal tube terminates approximately 2.8 cm above the funmi. The heart and lungs are unchanged in appearance when compared with chest radiograph performed 10/30/2023 at 7:41 PM.
--- NOTE | ~2023-10-30 | XR_ITS ---
EXAMINATION: XR CHEST CLINICAL INFORMATION: Shortness of breath COMPARISON: Previous chest x-ray most recent December 2021 TECHNIQUE: Frontal view of the chest was obtained. FINDINGS: Patient is rotated to the right. This limits evaluation of the cardiomediastinal silhouette. Lungs are clear. No pleural effusion or pneumothorax. Degenerative changes of the spine. XR/XR chest 1V IMPRESSION: Patient rotated to the right. Lungs are clear.
--- NOTE | ~2023-10-30 | CT_ITS ---
EXAMINATION: CT ANGIOGRAM OF THE CHEST WITH AND WITHOUT CONTRAST (CT PULMONARY ANGIOGRAM FOR PE) CLINICAL INFORMATION: Reason for Exam sepsis, no clear source COMPARISON: Previous chest x-ray from earlier the same day and chest CTA from 2014 and VQ scan from March 2018 TECHNIQUE: Prior to contrast administration, noncontrast localization images were obtained. Subsequently, multidetector volumetric imaging was performed from the thoracic inlet to below the diaphragms following the administration of 80 mL Omnipaque 350 intravenous contrast. No contrast reaction reported Sagittal, coronal, and MIP oblique sagittal reformatted images were obtained on the CT workstation, uploaded to PACS, and reviewed. This CT examination was performed using dose optimization techniques as appropriate, variously including the following: *Automated exposure control *Adjustment of mA and/or kV according to patient size (this includes techniques or standardized protocols for targeted exams where dose is matched to indication/reason for exam; i.e. extremities or head) *Use of iterative reconstruction technique Total exam dose-length product 1234 mGy-cm FINDINGS: QUALITY OF STUDY/CONTRAST BOLUS: Satisfactory. PULMONARY ARTERIES: No pulmonary emboli. THORACIC AORTA: No aneurysm. LUNG: Subsegmental atelectasis in the right upper lobe. There is bilateral lower lobe subsegmental atelectasis/small infiltrates, right greater than left. There is heterogeneous attenuation throughout the lungs. This may represent hypoventilatory changes related to air trapping versus pneumonitis. There are several small left pulmonary nodules. Largest is a 3 mm left lower lobe nodule axial image 38 series 7. Lungs are otherwise clear. Endotracheal tube tip 2.5 cm above the funmi. PLEURA: No pleural effusion or pneumothorax. MEDIASTINUM: Upper normal heart size. No pericardial effusion. No hilar or mediastinal lymphadenopathy. No evidence of septal bowing or right heart strain. CORONARY ARTERY CALCIFICATION: Mild CHEST WALL/AXILLA: No axillary or internal mammary lymphadenopathy. OSSEOUS STRUCTURES: No acute or suspicious osseous abnormality. Mild old appearing T12 vertebral body compression fracture versus Schmorl's node. UPPER ABDOMEN: There is reflux of contrast into the hepatic veins to suggest elevated right heart pressures. Nasogastric tube in the stomach. CT/CT angio chest PE protocol IMPRESSION: No evidence of pulmonary embolism. Subsegmental atelectasis/small infiltrates in both lower lobes, right greater than left. Subsegmental atelectasis in the right upper lobe. Question bilateral pneumonitis versus hypoventilatory changes related to air trapping. VTE: negative
--- NOTE | 2023-10-30 19:16 | ED_ITS ---
HPI - General Adult General Chief complaint: General Medical Stated complaint: dx flu, tongue swelling, fever, diff breathing Time Seen by Provider: 10/30/23 19:24 History of Present Illness HPI narrative: The patient is a 78-year-old woman on apixaban because of previous DVT/pulmonary embolism who lives at home. She was delirious and agitated on arrival and was not able to give any history. The history was provided by her daughter who was at the bedside and a grandson. Apparently she has been complaining of feeling somewhat unwell for the last 3 or 4 days. Yesterday she said that she was having a lot of body aches and that she was ?burning up. Despite feeling unwell yesterday however she was able to come to the hospital to brass pickler a relative who had been seen in the emergency room for the flu. Family says that they checked her temperature yesterday and it was 99.6. Related Data Home Medications ?Medication ?Instructions ?Recorded ?Confirmed carisoprodol 250 mg tablet 250 mg PO BID PRN muscle pain 09/24/22 04/09/23 Previous Rx's ?Medication ?Instructions ?Recorded inhalational spacing device #10 ea 03/13/22 (Aerochamber MV spacer) atorvastatin 40 mg tablet 40 mg PO DAILY #90 tabs 07/09/22 hydrochlorothiazide 50 mg tablet 50 mg PO DAILY #90 tabs 11/10/22 ondansetron HCl 4 mg tablet 4 mg PO Q8H PRN for 03/29/23 nausea/vomiting 10 days #30 tabs omeprazole 40 mg capsule,delayed 40 mg PO DAILY 90 days #90 caps 04/08/23 release albuterol sulfate 90 mcg/actuation 1 inh inhalation QID PRN shortness 06/17/23 aerosol inhaler (Ventolin HFA) of breath or wheezing #8.5 grams lisinopril 40 mg tablet 40 mg PO DAILY 90 days #90 tabs 08/12/23 sertraline 50 mg tablet 50 mg PO DAILY #90 tabs 08/12/23 apixaban 5 mg tablet (Eliquis) 5 mg PO BID #180 tabs 10/27/23 Allergies Allergy/AdvReac Type Severity Reaction Status Date / Time levofloxacin [From LEVAQUIN] Allergy Severe angioedema Verified 10/30/23 19:19 metronidazole [From FLAGYL] Allergy Severe angioedema Verified 10/30/23 19:19 codeine [CODEINE] Allergy Intermediate RASH, hives Verified 10/30/23 19:19 codeine Allergy Unknown hives Uncoded 04/08/23 16:23 Review of Systems 2 Review of Systems: Yes Unobtainable due to mental status PMFSH Past Medical History Medical History Anemia Impaired fasting glucose History of pulmonary embolism Breast cancer screening Exertional dyspnea Morbid obesity with BMI of 40.0-44.9, adult Osteopenia Chronic idiopathic urticaria Chronic kidney disease (CKD), stage III (moderate) Pure hypercholesterolemia Benign essential hypertension Skin lesions Surgical History History of back surgery History of appendectomy Family History Family History Father Liver cirrhosis Mother Substance abuse Social History Social History Household Members: Family and Children Housing: House Do you presently have visiting nurse or other home services: No Alcohol intake: never Patient Tobacco Use Status: Former Tobacco user e-Cigarette/Vaping Use: Never Used Second Hand Smoke Exposure: Yes Advance Directives: Yes Advance Directives on File: Yes Advance Directives Date on File: 01/24/22 Do you have a plan to hurt others: No Plan service: No Current occupational status: retired Cognitive needs: Yes (walker) Hearing needs: No Vision needs: Yes (wears glasses) Physical Exam ED Vital Signs: Vital Signs - 24 hr 10/30/23 19:13 10/30/23 19:32 10/30/23 20:20 Temperature 98.7 F Pulse Rate 81 96 Respiratory Rate 24 H 15 Blood Pressure 147/122 H Fraction of Inspired Oxygen 10/30/23 20:25 10/30/23 20:39 10/30/23 20:40 Temperature Pulse Rate 80 79 Respiratory Rate Blood Pressure 67/37 L Fraction of Inspired Oxygen 100 10/30/23 21:05 10/30/23 21:10 10/30/23 21:20 Temperature Pulse Rate 86 45 L 89 Respiratory Rate Blood Pressure 63/40 L 65/26 L 66/45 L Fraction of Inspired Oxygen 10/30/23 21:32 10/30/23 21:40 10/30/23 21:55 Temperature Pulse Rate 78 84 84 Respiratory Rate Blood Pressure 71/22 L 71/52 L 72/43 L Fraction of Inspired Oxygen 10/30/23 22:00 10/30/23 22:22 10/30/23 22:26 Temperature Pulse Rate 89 89 40 L Respiratory Rate Blood Pressure 105/83 110/65 102/74 Fraction of Inspired Oxygen 10/30/23 22:38 10/30/23 23:14 10/30/23 23:49 Temperature Pulse Rate 42 L 46 L 57 Respiratory Rate 22 H Blood Pressure 0/0 L 68/42 L Fraction of Inspired Oxygen 10/30/23 23:50 10/30/23 23:51 10/31/23 00:27 Temperature Pulse Rate 59 100 Respiratory Rate Blood Pressure 0/0 L 153/94 H Fraction of Inspired Oxygen 100 10/31/23 00:35 Temperature Pulse Rate 100 Respiratory Rate Blood Pressure 153/94 H Fraction of Inspired Oxygen BMI result Body Mass Index 52.6 Const Other: The patient is a morbidly obese 78-year-old (BMI 52) who was restless and delirious and unable to answer any questions. Her lips looked cyanotic. She was restless but did not seem to have obvious increased work of breathing. She looked acutely ill HENMT Other: Mucous membranes looked somewhat dry. Lips looked cyanotic. No facial asymmetry Eyes Other: Pupils were small and equal. Conjunctivae clear. No scleral icterus Neck Other: No JVD, the neck was supple. Resp Other: No obvious wheezes or crackles on exam. Cardio Other: The patient had a mildly irregular heart rhythm with a normal rate. No definite murmur. GI Other: The abdomen was large and round. It seemed soft. It was not obviously tender. Skin Other: The skin was pale. Lips initially looked cyanotic. Neuro Other: The patient was delirious and not able to answer questions. There was no obvious facial asymmetry. She was restless and moving all of her extremities with symmetrical tone. Extrem Other: No pitting edema Course Course Course Narrative: ANDREW- 78 female presents for evaluation of body aches, ?tongue swelling and blood in her stool. She is here with her daughter and grandson. Apparently the patient's brother whom she lives with was diagnosed with influenza yesterday. The patient has been complaining of symptoms for last couple of hours. The patient's tongue is blue, but per family she was just drinking blue Gatorade. On my exam the tongue not appear acutely edematous. The patient's temp was 95.1?. Plan for septic workup including swabs Medications Administered Generic Name Dose Route Start Last Admin Trade Name Freq PRN Reason Stop Dose Admin Midazolam HCl 50 mg in 50 mls @ 2 mls/hr 10/30/23 20:30 10/30/23 20:25 Versed IVCONT 2 mg/hr .Q24H NANCY 2 mls/hr Administration 2 MG/HR Fentanyl 1,000 mcg in 100 mls @ 0 mls/hr 10/30/23 20:30 10/30/23 22:02 Sublimaze/Ns IVCONT 25 mcg/hr .Q0M NANCY 2.5 mls/hr Administration Protocol Per Protocol Norepinephrine Bitartrate 8 mg in 250 mls @ 0 mls/hr 10/30/23 20:30 10/31/23 00:52 Levophed IV 0.8 mcg/kg/min .Q0M NANCY 183.3 mls/hr Administration Protocol Per Protocol Dextrose 250 mls @ 750 mls/hr 10/30/23 20:38 10/30/23 21:36 D10 IV Infused Q15M PRN Infusion per Hypoglycemia Standing Ord. Sodium Bicarbonate 150 meq/ 1,000 mls @ 100 mls/hr 10/30/23 22:00 10/30/23 22:25 Dextrose IV 100 mls/hr .Q10H NANCY Administration Epinephrine 5 mg/ Dextrose 255 mls @ 0 mls/hr 10/30/23 23:45 10/31/23 00:41 IVCONT 0 mcg/kg/min .Q0M NANCY 0 mls/hr Titration Protocol Per Protocol Dextrose 250 mls @ 750 mls/hr 10/30/23 23:42 10/31/23 00:02 D10 IV 750 mls/hr Q15M PRN Administration per Hypoglycemia Standing Ord. Vasopressin 20 unit in 100 mls @ 12 mls/hr 10/31/23 00:00 10/31/23 00:35 Vasostrict IVCONT 0.04 unit/min .Q8H20M NANCY 12 mls/hr Administration 0.04 UNIT/MIN Discontinued Medications Generic Name Dose Route Start Last Admin Trade Name Crystal PRN Reason Stop Dose Admin Albuterol Sulfate 7.5 mg/ 10 mg 10/30/23 23:42 10/30/23 23:48 Albuterol Sulfate 2.5 mg INHALE 10/30/23 23:43 10 mg ONCE ONE Administration Albuterol/Ipratropium 3 ml 10/30/23 19:27 10/30/23 19:30 Albuterol/Iprat 2.5/0.5mg 3 Ml Ampul.Neb INHALE 10/30/23 19:28 3 ml ONCE ONE Administration Epinephrine 1 mg 10/30/23 23:51 10/30/23 23:40 Epinephrine 1 Mg/10 Ml Syringe IVPUSH 10/30/23 23:52 1 mg ONCE ONE Administration Sodium Chloride 1,000 mls @ 999 mls/hr 10/30/23 20:30 10/30/23 21:30 Ns IV 10/30/23 21:30 Infused .Q1H1M NANCY Infusion Piperacillin Sod/Tazobactam 100 mls @ 200 mls/hr 10/30/23 20:48 10/30/23 21:45 Sod 4.5 gm/ Sodium Chloride IV 10/30/23 21:17 Infused ONCE ONE Infusion Calcium Gluconate 2 gm in 100 mls @ 400 mls/hr 10/30/23 20:49 10/30/23 21:58 Calcium Gluconate IV 10/30/23 21:03 Infused ONCE ONE Infusion Vancomycin HCl 1,500 mg/ 500 mls @ 333.333 mls/hr 10/30/23 21:00 10/30/23 23:00 Sodium Chloride IV 10/30/23 22:29 Infused ONCE ONE Infusion Sodium Chloride 1,000 mls @ 999 mls/hr 10/30/23 21:30 10/30/23 21:55 Ns IV 10/30/23 22:30 Infused .Q1H1M NANCY Infusion Sodium Chloride 1,000 mls @ 999 mls/hr 10/30/23 21:30 10/30/23 23:11 Ns IV 10/30/23 22:30 Infused .Q1H1M NANCY Infusion Sodium Chloride 1,000 mls @ 999 mls/hr 10/30/23 23:45 10/30/23 23:55 Ns IV 05/02/24 00:45 999 mls/hr .Q1H1M NANCY Administration Calcium Gluconate 2 gm in 100 mls @ 400 mls/hr 10/30/23 23:57 10/31/23 00:21 Calcium Gluconate IV 10/31/23 00:11 400 mls/hr ONCE ONE Administration Lactated Ringer's 1,000 mls @ 999 mls/hr 10/31/23 00:45 10/31/23 01:40 Lr IV 10/31/23 01:45 999 mls/hr .Q1H1M NANCY Administration Insulin Human Regular 10 unit 10/30/23 23:43 10/30/23 23:56 Insulin Regular, Human 100 Unit/Ml 3 Ml Vial IVPUSH 10/30/23 23:44 10 unit ONCE ONE Administration Iohexol 85 ml 10/30/23 22:55 10/30/23 22:56 Iohexol 350 Mg/Ml 100 Ml Infus..Btl IV 10/30/23 22:56 85 ml ONCE ONE Administration Ketamine HCl 130 mg 10/30/23 23:32 10/30/23 20:15 Ketamine Hcl/Ns 50 Mg/5 Ml Syringe IVPUSH 10/30/23 23:33 130 mg ONCE ONE Administration Sodium Bicarbonate 50 meq 10/30/23 23:46 10/31/23 00:22 Sodium Bicarbonate 8.4% 50 Meq/50 Ml Syringe IVPUSH 10/30/23 23:47 50 meq ONCE ONE Administration Procedures Central Line Placement Right IJ: Time Out Performed: Yes Patient Placed on Monitor/Pulse Ox: Yes MD Prep: mask, gown and gloves Central Line Prep: Chlorhexidine scrub Ultrasound Used for Placement: Yes Central Line Lumen Inserted: triple Post Procedure: sutured in place Post Procedure X-Ray: tip of catheter in good position Patient Tolerated Procedure: no complications Complications: none Intubation Intubation Type:: Emergency Endotracheal Intubation Intubation Date:: 10/30/23 sedative: Ketamine Mg Given: 130 Laryngoscope: fiber optic video scope ET Tube Size: 7.5 ET Tube Uncuffed: Yes Tube Secured Location: lips Tube Placement Confirmation: visualized tube passing through cords, equal breath sounds bilaterally, no breath sounds over epigastrium and confirmation by capnometry Patient Tolerated Procedure: well Intubation Complications: none Medical Decision Making Medical Decision Making MDM Narrative: The patient arrived by private vehicle looking quite ill. She looked short of breath and her lips were cyanotic. She was restless and agitated and delirious. Initial attempts at phlebotomy and establishing IV access were difficult was also difficult to register an oxygen saturation also difficult to register a reliable blood pressure. An ultrasound guided IV in the right antecubital fossa was placed. This allowed us to perform phlebotomy as well as use an IV. Given the degree of restlessness and agitation she was demonstrating and given that her lips looked cyanotic I felt that she would need to provide additional care. The patient's daughter was present during the entire ER visit and understood the rationale for intubation. Given that she seemed to be in some degree of respiratory difficulty my initial impression was that the patient probably had some kind of a pulmonary process although were lungs are clear to auscultation. I had some worries that given her history of pulmonary emboli that she might be having a massive pulmonary embolism. The patient's chest x-ray was clear and this heightened my concern for the possibility of a pulmonary embolism as well. The patient's initial labs were remarkable for a severely elevated lactate of 17. At that point antibiotics, piperacillin/tazobactam and vancomycin and also IV fluids were ordered. It was clear that the patient was critically ill and will need additional IV access. I informed the patient's daughter who was still present and obtained verbal consent for a triple-lumen catheter. This was placed in the patient's right internal jugular vein. Other labs came back indicating the patient was in acute renal failure and hyperkalemic. The patient was given IV calcium and IV fluids. Additionally the the patient was hypoglycemic and was given glucose. His white blood count was fairly elevated at 37,000 with 32% bands. This further pointed towards sepsis as a problem. Urinary catheter was placed but only a very small amount of urine initially catheter. Other labs included the patient's initial VBG which showed a pH of 6.77, pCO2 of 47, and a PO2 of 73. Additionally the patient had a creatinine of 6.2 and a BUN of 62. I explained to the patient's daughter who was at the bedside that given a lactate of 17 and a pH of 6.77 the patient's prognosis was potentially very poor. The patient was hypotensive and placed on norepinephrine. A fentanyl drip was started for sedation. After the patient was intubated and had a central line and her initial labs were back I communicated with our radio interference investigator who felt that given the patient's history of pulmonary emboli and given her hemodynamic instability and apparent shortness of breath and difficulty in obtaining a reliable oxygen saturation that we should obtain a CT pulmonary angiogram despite the patient has renal impairment. I discuss this with the patient's daughter who ultimately gave me verbal consent to proceed with a CT pulmonary angiogram. Also a CT of the abdomen and pelvis was done to look for a possible source of sepsis. The CT pulmonary angiogram showed no evidence of pulmonary emboli or other acute thoracic process. The CT of the abdomen and pelvis showed to distal ureteral stones in the right ureter with some mild hydronephrosis. This was indicative of a likely urinary source of a fever complicated by a distal ureteral stone. I again communicated with the in missed on-call. I contacted the on-call urologist as well who felt that the patient was clinically too unstable to go to the operating room for any decompression of the patient's right ureter. During this time the patient is blood pressure has been poor. Her norepinephrine drip was maximized and I also ordered an epinephrine drip. Repeat labs were obtained that showed an improvement in the patient's lactate from 17.5 to 13.2, an improvement in her creatinine from 6.2 to 4.9, and an improvement in her BUN from 62-49. However her potassium worsened from 6.5 to 7.9. The patient was given additional calcium, insulin and glucose, high-dose albuterol, and additional IV fluids. I again spoke with the radio interference investigator. The plan at that point was to admit the patient to the intensive care unit consultation to Nephrology for urgent dialysis. However before the patient was moved from the emergency room to the ICU she became asystolic. Chest compressions were begun and she was IV epinephrine, IV calcium, IV bicarbonate, and IV atropine. We attempted CPR for approximately 17 minutes. This time the patient remained asystolic during any pulse checks. Ultimately I felt continuing efforts at resuscitation would be futile and the patient was pronounced at 02:11. During this time I kept the family informed and ultimately explained that I felt there was no likelihood of any recovery. Lab Data 10/30/23 20:02 10/30/23 23:12 Labs: Lab Results 10/30/23 10/30/23 10/30/23 Range/Units 20:02 20:04 20:17 WBC 37.7 H* (4.8-10.8) X10*3/uL RBC 3.85 L (4.20-5.50) X10*6/uL Hgb 13.5 (12.0-16.0) g/dl Hct 44.9 (37.0-47.0) % MCV 116.6 H (80.0-98.0) fL MCH 35.1 H (27.0-33.0) pg MCHC 30.1 L (31.0-35.0) g/dl RDW 14.4 (11.0-16.0) % Plt Count 243 D (160-400) X10*3/uL MPV 11.4 (9.4-12.3) fL Immature Gran % (Auto) Cancelled Neut % (Auto) Cancelled Lymph % (Auto) Cancelled [place] % (Auto) Cancelled Eos % (Auto) Cancelled Baso % (Auto) Cancelled Lymph # (Auto) Cancelled [place] # (Auto) Cancelled Eos # (Auto) Cancelled Baso # (Auto) Cancelled Abs Immat Gran (auto) Cancelled Absolute Neuts (auto) Cancelled Absolute Nucleated RBC 0.040 H (0.0-0.012) X10*3/uL Nucleated RBC % (auto) 0.1 (0.0-0.2) /100WBC Neutrophils % (Manual) 55 (45-73) % Band Neutrophils % 32 H (3-5) % Lymphocytes % (Manual) 4 L (20-40) % Monocytes % (Manual) 1 L (2-11) % Eosinophils % (Manual) 2 (0-4) % Metamyelocytes % 4 % Myelocytes % 2 % Abs Neuts (Manual) 32.8 H (2.0-8.3) X10*3/uL Lymphocytes # (Manual) 1.5 (1.2-4.9) X10*3/uL Monocytes # (Manual) 0.4 (0.1-1.2) X10*3/uL Eosinophils # (Manual) 0.8 H (0.0-0.4) X10*3/uL Metamyelocytes # 1.5 X10*3/uL Myelocytes # 0.8 X10*/uL Nucleated RBCs 1 H (0-0) /100WBC Platelet Estimate NORMAL (NORMAL) Plt Morphology Comment NORMAL RBC Morphology NORMAL PT 22.3 H (11.1-13.3) SEC INR 1.8 H (0.9-1.1) APTT 39.7 H (26.0-36.8) SEC VBG pH 6.77 L* (7.32-7.43) VBG pCO2 47 mmHg VBG pO2 73 mmHg VBG HCO3 7 L (22-26) mmol/L VBG O2 Saturation 80.0 % VBG Base Excess -27.9 mmol/L Sodium 144 (135-145) mmol/L Potassium 6.5 H* (3.3-5.1) mmol/L Chloride 103 (96-108) mmol/L Carbon Dioxide 8 L* D (22-29) mmol/L Anion Gap 40 H (12-20) BUN 62 H (9-16) mg/dL Creatinine 6.21 H* (0.5-1.4) mg/dL Estim Creat Clear Calc 8.9 Estimated GFR 7 Random Glucose 33 L* (60-115) mg/dL Lactic Acid 17.5 H* (0.5-2.0) mmol/L Calcium 10.6 H (8.4-10.2) mg/dL Total Bilirubin 0.3 (0.0-1.0) mg/dL AST 1404 H (5-31) U/L ALT 1297 H (0-31) U/L Alkaline Phosphatase 273 H (39-117) U/L Total Protein 6.6 (6.5-8.0) g/dL Albumin 3.7 (3.5-5.0) g/dL Lipase 13 (8-78) U/L Urine Color Urine Appearance Urine pH (5.0-9.0) Ur Specific [place] (1.005-1.025) Urine Protein (Neg-Trace) mg/dL Urine Glucose (UA) (Negative) mg/dL Urine Ketones (Negative) mg/dL Urine Blood (Negative) Urine Nitrite (Negative) Ur Leukocyte Esterase (Negative) Urine RBC (0-2) /HPF Urine WBC (0-5) /HPF Urine WBC Clumps Ur Squamous Epith Cells (0-2) /HPF Urine Bacteria (None Seen) Hyaline Casts (0-2) /LPF Influenza Type A (PCR) NEGATIVE (Negative) Influenza Type B (PCR) NEGATIVE (Negative) RSV RNA Qual (PCR) NEGATIVE (Negative) SARS-CoV-2 RNA (RT-PCR) NEGATIVE (Negative) Blood Type Antibody Screen 10/30/23 10/30/23 10/31/23 Range/Units 23:12 23:19 00:13 WBC (4.8-10.8) X10*3/uL RBC (4.20-5.50) X10*6/uL Hgb (12.0-16.0) g/dl Hct (37.0-47.0) % MCV (80.0-98.0) fL MCH (27.0-33.0) pg MCHC (31.0-35.0) g/dl RDW (11.0-16.0) % Plt Count (160-400) X10*3/uL MPV (9.4-12.3) fL Immature Gran % (Auto) Neut % (Auto) Lymph % (Auto) [place] % (Auto) Eos % (Auto) Baso % (Auto) Lymph # (Auto) [place] # (Auto) Eos # (Auto) Baso # (Auto) Abs Immat Gran (auto) Absolute Neuts (auto) Absolute Nucleated RBC (0.0-0.012) X10*3/uL Nucleated RBC % (auto) (0.0-0.2) /100WBC Neutrophils % (Manual) (45-73) % Band Neutrophils % (3-5) % Lymphocytes % (Manual) (20-40) % Monocytes % (Manual) (2-11) % Eosinophils % (Manual) (0-4) % Metamyelocytes % % Myelocytes % % Abs Neuts (Manual) (2.0-8.3) X10*3/uL Lymphocytes # (Manual) (1.2-4.9) X10*3/uL Monocytes # (Manual) (0.1-1.2) X10*3/uL Eosinophils # (Manual) (0.0-0.4) X10*3/uL Metamyelocytes # X10*3/uL Myelocytes # X10*/uL Nucleated RBCs (0-0) /100WBC Platelet Estimate (NORMAL) Plt Morphology Comment RBC Morphology PT (11.1-13.3) SEC INR (0.9-1.1) APTT (26.0-36.8) SEC VBG pH 6.74 L* (7.32-7.43) VBG pCO2 41 mmHg VBG pO2 96 mmHg VBG HCO3 6 L (22-26) mmol/L VBG O2 Saturation 92.0 % VBG Base Excess -27.7 mmol/L Sodium 137 (135-145) mmol/L Potassium 7.9 H* D (3.3-5.1) mmol/L Chloride 111 H (96-108) mmol/L Carbon Dioxide 6 L* D (22-29) mmol/L Anion Gap 28 H (12-20) BUN 49 H (9-16) mg/dL Creatinine 4.95 H* (0.5-1.4) mg/dL Estim Creat Clear Calc 11.2 Estimated GFR 8 Random Glucose 90 (60-115) mg/dL Lactic Acid 13.2 H* (0.5-2.0) mmol/L Calcium 7.1 L D (8.4-10.2) mg/dL Total Bilirubin (0.0-1.0) mg/dL AST (5-31) U/L ALT (0-31) U/L Alkaline Phosphatase (39-117) U/L Total Protein (6.5-8.0) g/dL Albumin (3.5-5.0) g/dL Lipase (8-78) U/L Urine Color Brown A Urine Appearance Turbid Urine pH 8.0 (5.0-9.0) Ur Specific [place] 1.015 (1.005-1.025) Urine Protein 300 (3+) H (Neg-Trace) mg/dL Urine Glucose (UA) Negative (Negative) mg/dL Urine Ketones Negative (Negative) mg/dL Urine Blood Large (3+) H (Negative) Urine Nitrite Negative (Negative) Ur Leukocyte Esterase Moderate (2+) H (Negative) Urine RBC >20 H (0-2) /HPF Urine WBC >50 H (0-5) /HPF Urine WBC Clumps Present Ur Squamous Epith Cells 6-10 (0-2) /HPF Urine Bacteria 4+ (None Seen) Hyaline Casts 0-2 (0-2) /LPF Influenza Type A (PCR) (Negative) Influenza Type B (PCR) (Negative) RSV RNA Qual (PCR) (Negative) SARS-CoV-2 RNA (RT-PCR) (Negative) Blood Type A Positive Antibody Screen NEGATIVE Independent Interpretation I performed an independent interpretation of an: EKG Interpretation: EKG at 043 shows atrial fibrillation with a slow ventricular response at 56 beats per minute. Critical Care Time Critical Care Time Critical Care Time: Yes Total Critical Care Time: 145 Attestation: The patient was critically ill with a high probability of imminent or life- threatening deterioration. ?I spent greater than 30 minutes of discontinuous time evaluating the patient, delivering critical care at the bedside, discussing evaluating data with consultants. ?Critical care time does not include time spent performing separately billable procedures or teaching. ?Time spent performing critical care with 145 minutes. Discharge Plan Discharge Clinical Impression: Severe sepsis, Urinary tract infection, Right ureteral calculus, Acute renal failure, Hyperkalemia, Severe sepsis with lactic acidosis Patient Disposition: Date/Time: 10/31/23 02:11
[2023-10-30] MEDS: Albuterol/Iprat 2.5/0.5MG 3 ML AMPUL.NEB INHALE (19:30)
[2023-10-30 20:15] LABS: Hematocrit 44.9 % (37.0-47.0); Hemoglobin 13.5 g/dl (12.0-16.0); Mean Corpuscular HGB Conc 30.1 g/dl (31.0-35.0); Mean Corpuscular Hemoglobin 35.1 pg (27.0-33.0); Mean Platelet Volume 11.4 fL (9.4-12.3); NRBC Pct Auto 0.1 /100WBC (0.0-0.2); Platelet Count 243 X10*3/uL (160-400); Red Blood Count 3.85 X10*6/uL (4.20-5.50); Red Cell Distribution Width 14.4 % (11.0-16.0)
[2023-10-30] MEDS: Ketamine HCl/NS 50 MG/5 ML SYRINGE 130 MG IVPUSH (20:15)
[2023-10-30 20:23] LABS: INTERNATIONAL NORM RATIO 1.8 (0.9-1.1); Prothrombin Time 22.3 SEC (11.1-13.3)
[2023-10-30] MEDS: Midazolam HCl/NS 50 MG/50 ML PLAST..BAG IVCONT (20:25)
[2023-10-30 20:27] LABS: VBG Base Excess -27.9 mmol/L; VBG HCO3 7 mmol/L (22-26); VBG pCO2 47 mmHg; VBG pH 6.77 (7.32-7.43); VBG pO2 73 mmHg
[2023-10-30 20:28] LABS: Mean Corpuscular Volume 116.6 fL (80.0-98.0); WBC ABN SCTR FOR CBC 1
[2023-10-30] MEDS: 0.9 % Sodium Chloride 1,000 ML 999 ML IV ×4 (20:30→23:55)
[2023-10-30 20:33] LABS: Venous Blood Gas Refer to POC result
[2023-10-30 20:40] LABS: Lactic Acid 17.5 mmol/L (0.5-2.0)
[2023-10-30] MEDS: Norepinephrine Bitartrate/D5W 8 MG/250 ML PLAST..BAG 11.46 MG IV (20:40)
[2023-10-30 20:42] LABS: Alanine Aminotransferase 1297 U/L (0-31); Albumin Level 3.7 g/dL (3.5-5.0); Alkaline Phosphatase 273 U/L (39-117); Anion Gap 40 (12-20); Aspartate Amino Transferase 1404 U/L (5-31); Bilirubin Total 0.3 mg/dL (0.0-1.0); Blood Urea Nitrogen 62 mg/dL (9-16); Calcium 10.6 mg/dL (8.4-10.2); Carbon Dioxide 8 mmol/L (22-29); Chloride 103 mmol/L (96-108); Creatinine Clr Calc Pharmacy 8.9; Estimated Glomerular Filt Rate 7; Glucose Random 33 mg/dL (60-115); Lipase 13 U/L (8-78); Potassium 6.5 mmol/L (3.3-5.1); Sodium 144 mmol/L (135-145); Total Protein 6.6 g/dL (6.5-8.0)
[2023-10-30 20:55] LABS: Influenza A PCR NEGATIVE (Negative); Influenza B PCR NEGATIVE (Negative); Resp Syncy Virus RNA Qual PCR NEGATIVE (Negative); SARS COV2 PCR INHOUSE NEGATIVE (Negative)
[2023-10-30 21:11] LABS: Eosinophils Percent Manual 2 % (0-4); Lymphocytes Percent Manual 4 % (20-40); Metamyelocytes Percent 4 %; Monocytes Percent Manual 1 % (2-11); Myelocytes Percent 2 %; Neutrophils Percent Manual 55 % (45-73); Nucleated Red Blood Cells 1 /100WBC (0-0); Platelet Estimate NORMAL (NORMAL); Platelet Morphology Comment NORMAL; RBC Morphology NORMAL
[2023-10-30] MEDS: vancomycin HCL 1,500 MG in 0.9 % Sodium Chloride 500 ML 333.33 MG IV (21:11)
[2023-10-30] MEDS: Piperacillin Sodium/Tazobactam 4.5 GM in 0.9 % Sodium Chloride 100 ML IV (21:11)
[2023-10-30 21:12] LABS: Eosinophils Absolute Manual 0.8 X10*3/uL (0.0-0.4); Lymphocytes Absolute Manual 1.5 X10*3/uL (1.2-4.9); Metamyelocytes Absolute 1.5 X10*3/uL; Monocytes Absolute Manual 0.4 X10*3/uL (0.1-1.2); Myelocytes Absolute 0.8 X10*/uL; Neutrophils Absolute Manual 32.8 X10*3/uL (2.0-8.3)
[2023-10-30] MEDS: Dextrose 10 % 250 ML 750 ML IV (21:16)
[2023-10-30 21:18] LABS: Band Neutrophils Percent 32 % (3-5); White Blood Count 37.7 X10*3/uL (4.8-10.8)
[2023-10-30] MEDS: Calcium Gluconate/NaCl,Iso-Osm 2 GM/100 ML PLAST..BAG IV (21:34)
[2023-10-30] MEDS: fentaNYL citrate/NS 1,000 MCG/100 ML PLAST..BAG 2.5 MCG IVCONT (22:02)
[2023-10-30 22:12] LABS: Reflex Lactate? Lactic Acid Added
[2023-10-30] MEDS: Sodium Bicarbonate 8.4% 150 MEQ in Dextrose 5 % 850 ML 100 MEQ IV (22:25)
[2023-10-30] MEDS: iohexoL 350 MG/ML 100 ML INFUS..BTL 85 ML IV (22:56)
[2023-10-30 23:20] LABS: Partial Thromboplastin Time 39.7 SEC (26.0-36.8)
[2023-10-30 23:28] LABS: VBG Base Excess -27.7 mmol/L; VBG HCO3 6 mmol/L (22-26); VBG pCO2 41 mmHg; VBG pH 6.74 (7.32-7.43); VBG pO2 96 mmHg
[2023-10-30 23:28] LABS: Venous Blood Gas Refer to POC result
[2023-10-30] MEDS: EPINEPHrine 1 MG/10 ML SYRINGE IVPUSH (23:40)
[2023-10-30 23:42] LABS: Lactic Acid 13.2 mmol/L (0.5-2.0)
[2023-10-30 23:44] LABS: Anion Gap 28 (12-20); Blood Urea Nitrogen 49 mg/dL (9-16); Calcium 7.1 mg/dL (8.4-10.2); Carbon Dioxide 6 mmol/L (22-29); Chloride 111 mmol/L (96-108); Creatinine Clr Calc Pharmacy 11.2; Estimated Glomerular Filt Rate 8; Glucose Random 90 mg/dL (60-115); Potassium 7.9 mmol/L (3.3-5.1); Sodium 137 mmol/L (135-145)
[2023-10-30] MEDS: Albuterol Sulfate 7.5 MG, Albuterol Sulfate (0.083%) 2.5 MG 10 MG INHALE (23:48)
[2023-10-30] MEDS: EPINEPHrine 5 MG in Dextrose 5 % 250 ML 74.79 MG IVCONT (23:51)
[2023-10-30] MEDS: Insulin Regular, Human 100 UNIT/ML 3 ML VIAL 10 UNIT IVPUSH (23:56)
[2023-10-31] MEDS: Dextrose 10 % 250 ML 750 ML IV (00:02)
[2023-10-31] MEDS: Calcium Gluconate/NaCl,Iso-Osm 2 GM/100 ML PLAST..BAG IV (00:21)
[2023-10-31] MEDS: Sodium Bicarbonate 8.4% 50 MEQ/50 ML SYRINGE IVPUSH (00:22)
--- NOTE | 2023-10-31 00:25 | ECG_ITS ---
Test Reason : SEPSIS Blood Pressure : / mmHG Vent. Rate : 056 BPM Atrial Rate : 000 BPM P-R Int : 000 ms QRS Dur : 080 ms QT Int : 372 ms P-R-T Axes : 000 003 087 degrees QTc Int : 358 ms Atrial fibrillation with slow ventricular response vs junctional rhythm Low voltage QRS Abnormal ECG When compared with ECG of 23-JAN-2022 18:04, Rhythm change Referred By: Wander Omalley Electronically Signed By:LAVINIA OROPEZA
[2023-10-31 00:27] VITALS: BP 153/94; PULSE 100
[2023-10-31 00:32] LABS: Appearance Urine Turbid; Color Urine Brown; Glucose Urine UA Negative (Negative)
[2023-10-31 00:33] LABS: Bacteria Urine 4+ (None Seen); Leukocyte Esterase Urine Moderate (2+) (Negative); Nitrite Urine Negative (Negative); RBC Urine >20 /HPF (0-2); Specific Gravity - Urine 1.015 (1.005-1.025); UACC Culture Trigger YES; UMIC TRIGGER UACC YES; Urine Blood Large (3+) (Negative); Urine Ketones Negative (Negative); Urine Protein 300 (3+) mg/dL (Neg-Trace); WBC Clumps Urine Present; WBC Urine >50 /HPF (0-5)
[2023-10-31 00:34] LABS: Hyaline Casts Urine 0-2 /LPF (0-2)
[2023-10-31 00:35] VITALS: BP 0/0; BP 153/94; PULSE 100; PULSE 62
[2023-10-31] MEDS: Vasopressin 20 UNIT/100 ML INFUS..BTL 12 UNIT IVCONT (00:35)
[2023-10-31 00:49] VITALS: BP 124/85; PULSE 55; PULSE 56; RESP 24
[2023-10-31 00:52] VITALS: BP 124/85; PULSE 55
[2023-10-31] MEDS: Norepinephrine Bitartrate/D5W 8 MG/250 ML PLAST..BAG 183.3 MG IV (00:52)
[2023-10-31 01:15] LABS: Glucose, Whole Blood 198 mg/dL (60-115)
[2023-10-31 01:16] LABS: Reflex Lactate? Lactic Acid Added
[2023-10-31] MEDS: Lactated Ringers 1,000 ML 999 ML IV (01:40)
[2023-10-31 02:09] LABS: ~Lactic Acid-LAB USE ONLY 17.8 mmol/L (0.5-2.0)
--- NOTE | 2023-10-31 02:32 | PC.NURSE ---
Addendum entered by Sarita Bateman Marcela 10/31/23 03:36: Case # [id number] Original Note: TIem of called at 0211. T/w called in to [facility] and spoke with Jaziel England. Referral declined.
--- NOTE | 2023-10-31 05:06 | PC.NURSE ---
Addendum entered by Sarita Medrano 10/31/23 07:10: Amended to add that PT was a tough stick therefore delaying labs and meds as such provider placed ultrasound guided IV Original Note: Assumed care of pt at 1954. PT moved from bed 2. Upon arrival into the room at 1954, this RN noted pt? to be on oxymask at 15L with labored breathing. PT unresponsive. 20g IV line placed in right AC ultrasound guided IV by provider, Dr. Viramontes,. Labs drawn, Continuous?cardiac monitoring established. Struggling to obtain proper BP.?2010 vitals obtained- bp 125/52 hr 86 rr 19. Continuing to struggle to get O2 sat reading.? 2014 130mg Ketamine administered 2016 PT intubated 07/02, at the lip.? 2024 Versed hung and infusing at 2mg/hr 2029 First liter of NS hung 2038. Xray in room to verify placement. provider reviewed 2039 Notified provider of low BP - 67/37? Levophed administered starting dose rate 0.05 mcg/hr 2107- Triple lumen Central line placed by provider. Line patent and intact. levophed infusing in central line. 2110 Zosyn and vanco hung and infusing- ordered by provider at 2047. notified?by provider? 2129 2L of NS hung and infusing with pressure bags.? 2154 Temp sensing nj placed, PT temp 98.1 2201 fentanyl drip hung and infused at 25mcg/hr. RASS -4? 2311- PT transported?to CT scan with t/w, rt and Oral HygienistJenny Lockett.? 234? T/W and other nurses attempted many different bp readings?on pt. Manual reading unsuccessful. Delaying second set of bp after infusion of fluids as per sepsis protocol.? 1mg of epi IV push administered?by provider 2344 4L of NS hung and infusing 2346. RT called to bedside due to o2?sat 2355 t/w notified of criitcal potassium, administered?medications as per AUG. Levo adjusted to 1mcg MD okayed as pt bp 69/51 and HR58,, having some moments of bradycardia as well? 0002 dextrose hung and infusing 20 Calcium gluconate hung and infusing, Sodium Bicarb?pushed? 002 BP 153/94, hr 100. levo reduced to 0.8mcg 0035 Epi paused and Vasopressin hung and infusing at 12mls/hr as per MD order 0113 Called ICU to give a report. Tech indicated RN was in a room with another?patient and that RN would? call t/w back. T/w provided extension 0125 T/W called ICU back again as t/w did not receive a call back from [facility]. Was able to give report to Candice. Candice reported that PT would be able to be moved to ICU once their downgraded PT was transferred by RT and RT would then come to help transport PT to ICU.? 0140 LR hung and infusing, New bag of norepinephrine?hung and infusing?? 0153 PT HR 54 pt appearing?cyanotic. Asystole on radiographer cardiac catheterization. Notified provider and called code. CPR initiated 0211 Unable to obtain Rosc. Time of called.?
== END 2023-10-31 03:42 | disposition expired ==
LOC: HO.ED 10-31 00:14 → HO.ICU 10-31 01:04
PROVIDERS: Internal Medicine Critical Care Medicine; Physician Assistant; Emergency Provider Emergency Medicine; PCP Internal Medicine
DX: A41.59 Other Gram-negative sepsis (principal); N13.6 Pyonephrosis; B96.4 Proteus (mirabilis) (morganii) as the cause of diseases classified elsewhere; R65.20 Severe sepsis without septic shock; I12.9 Hypertensive chronic kidney disease with stage 1 through stage 4 chronic kidney disease, or unspecified chronic kidney disease; N18.30 Chronic kidney disease, stage 3 unspecified; N17.8 Other acute kidney failure; E87.20 Acidosis, unspecified; E87.5 Hyperkalemia; E78.00 Pure hypercholesterolemia, unspecified; D64.9 Anemia, unspecified; R06.09 Other forms of dyspnea; E66.01 Morbid (severe) obesity due to excess calories; Z68.43 Body mass index [BMI] 50.0-59.9, adult; Z86.718 Personal history of other venous thrombosis and embolism; Z86.711 Personal history of pulmonary embolism; Z79.01 Long term (current) use of anticoagulants; Z79.02 Long term (current) use of antithrombotics/antiplatelets; Z79.899 Other long term (current) drug therapy; Z87.891 Personal history of nicotine dependence; Z03.818 Encounter for observation for suspected exposure to other biological agents ruled out; R06.00 Dyspnea, unspecified
CPT/HCPCS: 0241U; 31500; 36415; 36556; 71045; 71275; 74177; 80048; 80053; 81001; 82803; 82947; 83605; 83690; 85007; 85027; 85610; 85730; 86850; 86900; 86901; 87040; 87077; 87086; 87088; 87186; 87205; 93005; 94002; 94640; 94799; 96361; 96365; 96366; 96367; 96368; 96375; 99285; J0171; J0461; J0613; J2251; J2543; J2598; J3010; J3371; J7120; Q9967

== ENCOUNTER → 2023-10-31 00:25 | Outpatient (BNV) | payer MEDICARE, SELFPAY | PROVIDERS: Emergency Provider Emergency Medicine; PCP Internal Medicine; Visit Provider Internal Medicine | DX: I48.91 Unspecified atrial fibrillation (principal) | CPT/HCPCS: 93010 ==